=== PATIENT | female | born 1975 | race Caucasian/White ===

== ENCOUNTER 2018-08-24 10:52 | Emergency (ER) | payer BC ==
--- NOTE | 2018-08-24 11:19 | EDM.PDOC ---
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 She states that she is eyes had a heavy periods but they've never been this heavy over this long. She reports that she is wearing a super plus tampon plus an overnight pad and is soaking through these every hour. She states about 1 week ago she began having dizziness and lightheaded and feels as though she is getting anemic. She denies any chest pain, shortness of breath, abdominal pain, dysuria, hematuria. She has taken a test which he states has been negative. Denies any previous gynecological surgeries or procedures. She is otherwise healthy and denies any significant past medical history. Review of systems: As per history of present illness and below otherwise all systems reviewed and negative. Past medical history: As per history of present illness and as reviewed below otherwise noncontributory. Surgical history: As per history of present illness and as reviewed below otherwise noncontributory. Social history: No reported history of drug or alcohol abuse. Family history: As per history of present illness and as reviewed below otherwise noncontributory. Physical exam: General: Patient sitting comfortably in no acute distress and nontoxic appearing HEENT: Atraumatic, normocephalic, pupils reactive, negative for conjunctival pallor or scleral icterus, mucous membranes moist, throat clear, neck supple, nontender, trachea midline. No meningeal signs. Lungs: Clear to auscultation, breath sounds equal bilaterally, chest nontender. Heart: S1S2, regular, negative for clicks, rubs, or overt murmur. Abdomen: Soft, nondistended, nontender. Negative for masses or hepatosplenomegaly. Negative for costovertebral tenderness. Pelvis: Stable nontender. Genitourinary: Moderate amount of bleeding from the cervix Rectal: Deferred. Extremities: Atraumatic, negative for cords or calf pain. Neurovascular unremarkable. Neuro: Awake, alert, oriented. Cranial nerves II through XII unremarkable. Cerebellum unremarkable. Motor and sensory unremarkable throughout. Exam nonfocal. Notes: 1250 - Discussed with Dr. Mendes, she advised patient calls for a sooner follow up and will start her on progesterone 10mg daily x 10 days. Diagnostics: CBC, CMP, PT/INR, hCG, EKG Therapeutics: None Prescriptions: Progesterone 10mg Impression: Abnormal uterine bleeding Plan: 1. Take medication as instructed 2. 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 Return to ED as needed as discussed Definitive disposition and diagnosis as appropriate pending reevaluation and review of above. - Related Data Allergies Allergy/AdvReac Type Severity Reaction Status Date / Time No Known Allergies Allergy Verified 08/24/18 11:07 Home Meds: Home Meds Multivitamin [Multivitamins] 1 each PO DAILY 08/24/18 [History] medroxyPROGESTERone [Provera] 10 mg PO DAILY 10 Days #10 tab 08/24/18 [Rx] Past Medical History - Past Health History Medical/Surgical History: Denies Medical/Surgical History - Infectious Disease History Infectious Disease History: Reports: Chicken Pox - Past Surgical History GI Surgical History: Reports: Cholecystectomy Social & Family History - Family History Family Medical History: Noncontributory - Tobacco Use Smoking Status *Q: Current Every Day Smoker Years of Tobacco use: 2 Packs/Tins Daily: 0.1 - Recreational Drug Use Recreational Drug Use: No ED ROS GENERAL - Review of Systems Review Of Systems: ROS reveals no pertinent complaints other than HPI. ED EXAM, RENAL/ - Physical Exam Exam: See Below (See dictation) Course - Vital Signs Last Recorded V/S: Last Vital Signs Temp 98.7 F 08/24/18 11:07 Pulse 97 08/24/18 11:07 Resp 18 08/24/18 11:07 BP 135/90 08/24/18 11:07 Pulse Ox 98 08/24/18 11:07 - Orders/Labs/Meds Orders: Active Orders 24 hr Category Date Time Status EKG 12 Lead [EKG Documentation Completion] [RC] STAT Care 08/24/18 11:25 Active Orthostatic Vital Signs [RC] ASDIRECTED Care 08/24/18 11:53 Active Labs: Laboratory Tests 08/24/18 08/24/18 08/24/18 Range/Units 11:20 11:20 11:30 WBC 9.76 (4.0-11.0) K/uL RBC 3.97 L (4.30-5.90) M/uL Hgb 11.5 L (12.0-16.0) g/dL Hct 35.6 L (36.0-46.0) % MCV 89.7 (80.0-98.0) fL MCH 29.0 (27.0-32.0) pg MCHC 32.3 (31.0-37.0) g/dL RDW Std Deviation 45.2 (28.0-62.0) fl RDW Coeff of Monster 14 (11.0-15.0) % Plt Count 331 (150-400) K/uL MPV 9.60 (7.40-12.00) fL Neut % (Auto) 61.9 (48.0-80.0) % Lymph % (Auto) 28.1 (16.0-40.0) % Wirt % (Auto) 6.1 (0.0-15.0) % Eos % (Auto) 3.6 (0.0-7.0) % Baso % (Auto) 0.3 (0.0-1.5) % Neut # (Auto) 6.0 H (1.4-5.7) K/uL Lymph # (Auto) 2.7 H (0.6-2.4) K/uL Wirt # (Auto) 0.6 (0.0-0.8) K/uL Eos # (Auto) 0.4 (0.0-0.7) K/uL Baso # (Auto) 0.0 (0.0-0.1) K/uL Nucleated RBC % 0.0 /100WBC Nucleated RBCs # 0 K/uL INR 0.94 Sodium (136-145) mmol/L Potassium (3.5-5.1) mmol/L Chloride (98-107) mmol/L Carbon Dioxide (21.0-32.0) mmol/L BUN (7.0-18.0) mg/dL Creatinine (0.6-1.0) mg/dL Est Cr Clr Drug Dosing mL/min Estimated GFR (MDRD) ml/min Glucose (74-106) mg/dL Calcium (8.5-10.1) mg/dL Total Bilirubin (0.2-1.0) mg/dL AST (15-37) IU/L ALT (14-63) IU/L Alkaline Phosphatase (46-116) U/L Total Protein (6.4-8.2) g/dL Albumin (3.4-5.0) g/dL Globulin (2.6-4.0) g/dL Albumin/Globulin Ratio (0.9-1.6) Urine HCG, Qual NEGATIVE (NEGATIVE) 08/24/18 Range/Units 11:54 WBC (4.0-11.0) K/uL RBC (4.30-5.90) M/uL Hgb (12.0-16.0) g/dL Hct (36.0-46.0) % MCV (80.0-98.0) fL MCH (27.0-32.0) pg MCHC (31.0-37.0) g/dL RDW Std Deviation (28.0-62.0) fl RDW Coeff of Monster (11.0-15.0) % Plt Count (150-400) K/uL MPV (7.40-12.00) fL Neut % (Auto) (48.0-80.0) % Lymph % (Auto) (16.0-40.0) % Wirt % (Auto) (0.0-15.0) % Eos % (Auto) (0.0-7.0) % Baso % (Auto) (0.0-1.5) % Neut # (Auto) (1.4-5.7) K/uL Lymph # (Auto) (0.6-2.4) K/uL Wirt # (Auto) (0.0-0.8) K/uL Eos # (Auto) (0.0-0.7) K/uL Baso # (Auto) (0.0-0.1) K/uL Nucleated RBC % /100WBC Nucleated RBCs # K/uL INR Sodium 140 (136-145) mmol/L Potassium 4.2 (3.5-5.1) mmol/L Chloride 104 (98-107) mmol/L Carbon Dioxide 27.5 (21.0-32.0) mmol/L BUN 12 (7.0-18.0) mg/dL Creatinine 1.0 (0.6-1.0) mg/dL Est Cr Clr Drug Dosing 68.61 mL/min Estimated GFR (MDRD) > 60.0 ml/min Glucose 101 (74-106) mg/dL Calcium 9.7 (8.5-10.1) mg/dL Total Bilirubin 0.3 (0.2-1.0) mg/dL AST 32 (15-37) IU/L ALT 62 (14-63) IU/L Alkaline Phosphatase 106 (46-116) U/L Total Protein 7.7 (6.4-8.2) g/dL Albumin 3.8 (3.4-5.0) g/dL Globulin 3.9 (2.6-4.0) g/dL Albumin/Globulin Ratio 1.0 (0.9-1.6) Urine HCG, Qual (NEGATIVE) Departure - Departure Time of Disposition: 13:10 Disposition: Home, Self-Care 01 Condition: Good Clinical Impression: Abnormal uterine bleeding - Discharge Information Prescriptions: medroxyPROGESTERone [Provera] 10 mg PO DAILY 10 Days #10 tab Referrals: PCP,None [Primary Care Provider] - Forms: ED Department Discharge Additional Instructions: The following information is given to patients seen in the emergency department who are being discharged to home. This information is to outline your options for follow-up care. We provide all patients seen in our emergency department with a follow-up referral. The need for follow-up, as well as the timing and circumstances, are variable depending upon the specifics of your emergency department visit. If you don't have a primary care physician on staff, we will provide you with a referral. We always advise you to contact your personal physician following an emergency department visit to inform them of the circumstance of the visit and for follow-up with them and/or the need for any referrals to a consulting specialist. The emergency department will also refer you to a specialist when appropriate. This referral assures that you have the opportunity for follow-up care with a specialist. All of these measure are taken in an effort to provide you with optimal care, which includes your follow-up. Under all circumstances we always encourage you to contact your private physician who remains a resource for coordinating your care. When calling for follow-up care, please make the office aware that this follow-up is from your recent emergency room visit. If for any reason you are refused follow-up, please contact the [facility] Emergency Department at and asked to speak to the emergency department charge nurse. [facility] [address] [place] [id number] 1. Take medication as instructed 2. 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 Return to ED as needed as discussed - My Orders Last 24 Hours: My Active Orders 08/24/18 11:25 EKG 12 Lead [EKG Documentation Completion] [RC] STAT 08/24/18 11:53 Orthostatic Vital Signs [RC] ASDIRECTED - Assessment/Plan Last 24 Hours: My Active Orders 08/24/18 11:25 EKG 12 Lead [EKG Documentation Completion] [RC] STAT 08/24/18 11:53 Orthostatic Vital Signs [RC] ASDIRECTED
[2018-08-24 12:10] LABS: CHLORIDE,CL 104 mmol/L (98-107); SODIUM,NA 140 mmol/L (136-145)
[2018-08-24 14:16] VITALS: BP 138/71
== END 2018-08-24 13:45 | disposition home or self-care (01) ==
LOC: MW.ED 10:52
DX: N93.9 Abnormal uterine and vaginal bleeding, unspecified (principal); F17.210 Nicotine dependence, cigarettes, uncomplicated; Z90.49 Acquired absence of other specified parts of digestive tract
CPT/HCPCS: 36415; 80053; 81025; 85025; 85610; 99284-25

== ENCOUNTER 2019-09-20 20:31 | Emergency (ER) | payer BC ==
--- NOTE | 2019-09-20 21:23 | EDM.PDOC ---
ED HPI GENERAL MEDICAL PROBLEM - General Chief Complaint: Abdominal Pain Stated Complaint: LEFT LOWER Q Time Seen by Provider: 09/20/19 20:46 Source of Information: Reports: Patient History Limitations: Reports: No Limitations - History of Present Illness INITIAL COMMENTS - FREE TEXT/NARRATIVE: CC: Left lower quadrant abdominal pain HPI: This is a 44-year-old female who presents with left lower quadrant abdominal pain for 2 days. 1 week ago patient noted she had a positive test. Patient is a G5, P3. No vaginal discharge fever vomiting diarrhea or dysuria. Last menstrual period was 5 weeks ago. No current vaginal bleeding. No history of PID. PMHX/PSHX: with 1 miscarriage in the past Social History: Negative for tobacco, negative for alcohol, negative for street drugs or marijuana Family history: Hypertension ROS: see chart PE: VS afebrile vital signs stable General: No apparent distress Head: Atraumatic normocephalic no lumps bumps or bruises Eyes: EOMI PERRLA scera white, conjuntiva pink Ears: TMs intact. No hemotympanum. No signs of infection or mastoid tenderness Nose: No epistaxis. Nares patent. No septal wall hematoma Throat: No pharyngeal erythema, exudate or tonsillar enlargement Neck: Supple. No cervical lymphadenopathy Chest wall: No point tenderness Heart: Regular rate and rhythm without murmur gallop or rub Lungs: Clear to auscultation and percussion without rale, rhonchi or wheeze. Abdomen: Soft nontender nondistended without guarding rigidity or rebound. Bowel sounds present. Neck: No spinal point tenderness full range of motion in all 6 directions Back: No spinal paraspinal or CVA tenderness Extremities: Full range of motion through out. No effusions Skin: Warm, dry and intact. No rashes, erythema or warmth Neurologic: Cranial nerves II through XII intact bilaterally. No focal motor or sensory deficits noted MDM: Differential diagnosis: ovarian torsion ovarian cyst urinary tract infection miscarriage ED course: Patient denies any vaginal bleeding or PID. She is O+ therefore RhoGam is not required. Work-up is negative except for her quantitative hCG of approximately 30,000. Ultrasound shows a uterine fibroid next to the left ovary it also shows a single live intrauterine at 6 weeks. Therefore no signs of an ectopic . Patient's case discussed with the OB on-call who will follow the patient closely. Patient advised to take Tylenol. Stable for discharge Final Diagnosis: Uterine fibroid, first trimester Disposition: Home llq Pain Score (Numeric/FACES): 4 - Related Data Allergies Allergy/AdvReac Type Severity Reaction Status Date / Time No Known Allergies Allergy Verified 08/24/18 11:07 Home Meds: Home Meds Multivitamin [Multivitamins] 1 each PO DAILY 08/24/18 [History] medroxyPROGESTERone [Provera] 10 mg PO DAILY 10 Days #10 tab 08/24/18 [Rx] Past Medical History - Past Health History Medical/Surgical History: Denies Medical/Surgical History - Infectious Disease History Infectious Disease History: Reports: Chicken Pox - Past Surgical History GI Surgical History: Reports: Cholecystectomy Social & Family History - Family History Family Medical History: Noncontributory ED ROS GENERAL - Review of Systems Review Of Systems: Comprehensive ROS is negative, except as noted in HPI. ED EXAM, GI/ABD - Physical Exam Exam: See Below Text/Narrative:: See my H&P Course - Vital Signs Last Recorded V/S: Last Vital Signs Temp 36.2 C 09/20/19 22:40 Pulse 79 09/20/19 22:40 Resp 14 09/20/19 22:40 BP 114/75 09/20/19 22:40 Pulse Ox 99 09/20/19 22:40 - Orders/Labs/Meds Labs: Laboratory Tests 09/20/19 09/20/19 09/20/19 Range/Units 20:45 21:08 21:08 WBC 10.27 (4.0-11.0) K/uL RBC 4.88 (4.30-5.90) M/uL Hgb 13.5 (12.0-16.0) g/dL Hct 41.2 (36.0-46.0) % MCV 84.4 (80.0-98.0) fL MCH 27.7 (27.0-32.0) pg MCHC 32.8 (31.0-37.0) g/dL RDW Std Deviation 46.3 (28.0-62.0) fl RDW Coeff of Monster 15 (11.0-15.0) % Plt Count 284 (150-400) K/uL MPV 9.90 (7.40-12.00) fL Neut % (Auto) 62.4 (48.0-80.0) % Lymph % (Auto) 28.5 (16.0-40.0) % Fountain % (Auto) 5.9 (0.0-15.0) % Eos % (Auto) 2.7 (0.0-7.0) % Baso % (Auto) 0.5 (0.0-1.5) % Neut # (Auto) 6.4 H (1.4-5.7) K/uL Lymph # (Auto) 2.9 H (0.6-2.4) K/uL Fountain # (Auto) 0.6 (0.0-0.8) K/uL Eos # (Auto) 0.3 (0.0-0.7) K/uL Baso # (Auto) 0.1 (0.0-0.1) K/uL Nucleated RBC % 0.0 /100WBC Nucleated RBCs # 0 K/uL Sodium 141 (136-145) mmol/L Potassium 3.3 L (3.5-5.1) mmol/L Chloride 105 (98-107) mmol/L Carbon Dioxide 26.6 (21.0-32.0) mmol/L BUN 7 (7.0-18.0) mg/dL Creatinine 0.8 (0.6-1.0) mg/dL Est Cr Clr Drug Dosing 84.88 mL/min Estimated GFR (MDRD) > 60.0 ml/min Glucose 86 (74-106) mg/dL Calcium 8.9 (8.5-10.1) mg/dL HCG, Quant mIU/mL Urine Color YELLOW Urine Appearance SLT CLOUDY Urine pH 6.0 (5.0-8.0) Ur Specific Santa >= 1.030 (1.001-1.035) Urine Protein NEGATIVE (NEGATIVE) mg/dL Urine Glucose (UA) NEGATIVE (NEGATIVE) mg/dL Urine Ketones NEGATIVE (NEGATIVE) mg/dL Urine Occult Blood NEGATIVE (NEGATIVE) Urine Nitrite POSITIVE H (NEGATIVE) Urine Bilirubin NEGATIVE (NEGATIVE) Urine Urobilinogen 0.2 (<2.0) EU/dL Ur Leukocyte Esterase NEGATIVE (NEGATIVE) Urine RBC NONE SEEN (0-2/HPF) Urine WBC 0-2 (0-5/HPF) Ur Epithelial Cells FEW (NONE-FEW) Urine Bacteria 3+ H (NEGATIVE) Urine Mucus LIGHT (NONE-MOD) Blood Type 09/20/19 09/20/19 Range/Units 21:08 21:08 WBC (4.0-11.0) K/uL RBC (4.30-5.90) M/uL Hgb (12.0-16.0) g/dL Hct (36.0-46.0) % MCV (80.0-98.0) fL MCH (27.0-32.0) pg MCHC (31.0-37.0) g/dL RDW Std Deviation (28.0-62.0) fl RDW Coeff of Monster (11.0-15.0) % Plt Count (150-400) K/uL MPV (7.40-12.00) fL Neut % (Auto) (48.0-80.0) % Lymph % (Auto) (16.0-40.0) % Fountain % (Auto) (0.0-15.0) % Eos % (Auto) (0.0-7.0) % Baso % (Auto) (0.0-1.5) % Neut # (Auto) (1.4-5.7) K/uL Lymph # (Auto) (0.6-2.4) K/uL Fountain # (Auto) (0.0-0.8) K/uL Eos # (Auto) (0.0-0.7) K/uL Baso # (Auto) (0.0-0.1) K/uL Nucleated RBC % /100WBC Nucleated RBCs # K/uL Sodium (136-145) mmol/L Potassium (3.5-5.1) mmol/L Chloride (98-107) mmol/L Carbon Dioxide (21.0-32.0) mmol/L BUN (7.0-18.0) mg/dL Creatinine (0.6-1.0) mg/dL Est Cr Clr Drug Dosing mL/min Estimated GFR (MDRD) ml/min Glucose (74-106) mg/dL Calcium (8.5-10.1) mg/dL HCG, Quant 57125.0 mIU/mL Urine Color Urine Appearance Urine pH (5.0-8.0) Ur Specific Santa (1.001-1.035) Urine Protein (NEGATIVE) mg/dL Urine Glucose (UA) (NEGATIVE) mg/dL Urine Ketones (NEGATIVE) mg/dL Urine Occult Blood (NEGATIVE) Urine Nitrite (NEGATIVE) Urine Bilirubin (NEGATIVE) Urine Urobilinogen (<2.0) EU/dL Ur Leukocyte Esterase (NEGATIVE) Urine RBC (0-2/HPF) Urine WBC (0-5/HPF) Ur Epithelial Cells (NONE-FEW) Urine Bacteria (NEGATIVE) Urine Mucus (NONE-MOD) Blood Type O POSITIVE Departure - Departure Time of Disposition: 22:59 Disposition: Home, Self-Care 01 Clinical Impression: Uterine fibroid complicating care, baby not yet delivered - Discharge Information Referrals: Joe Bowman MD [Primary Care Provider] - Forms: ED Department Discharge Additional Instructions: The following information is given to patients seen in the emergency department who are being discharged to home. This information is to outline your options for follow-up care. We provide all patients seen in our emergency department with a follow-up referral. The need for follow-up, as well as the timing and circumstances, are variable depending upon the specifics of your emergency department visit. If you don't have a primary care physician on staff, we will provide you with a referral. We always advise you to contact your personal physician following an emergency department visit to inform them of the circumstance of the visit and for follow-up with them and/or the need for any referrals to a consulting specialist. The emergency department will also refer you to a specialist when appropriate. This referral assures that you have the opportunity for follow-up care with a specialist. All of these measure are taken in an effort to provide you with optimal care, which includes your follow-up. Under all circumstances we always encourage you to contact your private physician who remains a resource for coordinating your care. When calling for follow-up care, please make the office aware that this follow-up is from your recent emergency room visit. If for any reason you are refused follow-up, please contact the [facility] Emergency Department at and asked to speak to the emergency department charge nurse. Call tomorrow to arrange a appointment with your [employer]. Feel free to take Tylenol for any discomfort Sepsis Event Note - Evaluation Sepsis Screening Result: No Definite Risk - Focused Exam Vital Signs: Vital Signs Temp Pulse Resp BP Pulse Ox 09/20/19 22:40 36.2 C 79 14 114/75 99 09/20/19 20:49 36.3 C 96 16 136/79 98 Date Exam was Performed: 09/20/19 Time Exam was Performed: 22:58
[2019-09-20 21:48] LABS: BLOOD UREA NITROGEN,BUN 7 mg/dL (7.0-18.0); CARBON DIOXIDE,CO2 26.6 mmol/L (21.0-32.0); CHLORIDE,CL 105 mmol/L (98-107); GLUCOSE RANDOM 86 mg/dL (74-106); POTASSIUM,K 3.3 mmol/L (3.5-5.1); SODIUM,NA 141 mmol/L (136-145)
--- NOTE | 2019-09-20 22:13 | US ---
Indication: Left lower quadrant pain, positive test Technique: Multiple grayscale and Doppler sonographic images of the pelvis. Scanning was performed transabdominally and transvaginally. Comparison: None Findings: There is a single live intrauterine gestation with crown-rump length of 4.8 mm, corresponding to approximate gestational age of 6 weeks, 2 days. tones are detected with rate of 122 beats per minute. There is an oval structure measuring 3.0 x 1.9 cm adjacent to left uterine fundus with similar echogenicity to the myometrium, most likely presenting an exophytic subserosal fibroid. The right ovary measures 2.5 x 2.0 x 1.6 cm and contains a 1.5 cm thick-walled cystic structure compatible with a corpus luteum.. Vascular flow is demonstrated to the right ovary. The left ovary measures 1.8 x 1.8 x 1.4 cm and demonstrates normal echotexture. Vascular flow is demonstrated to the left ovary. No adnexal mass is demonstrated. Trace free fluid is noted in the pelvic cul-de-sac. Impression: 1. Single live intrauterine gestation with approximate age of 6 weeks, 2 days and heart rate of 122 bpm. 2. Likely 3 cm left fundal uterine fibroid. 3. Unremarkable ovaries. Dictated by Mena Eli MD @ Sep 20 2019 10:00PM Signed by Dr. Mena Eli @ Sep 20 2019 10:13PM
[2019-09-20 23:55] VITALS: BP 119/74; PULSE 74
== END 2019-09-20 23:53 | disposition home or self-care (01) ==
LOC: MW.ED 20:31
DX: O34.11 Maternal care for benign tumor of corpus uteri, first trimester (principal); O09.521 Supervision of elderly multigravida, first trimester; Z3A.01 Less than 8 weeks gestation of pregnancy
CPT/HCPCS: 36415; 76817; 76817-26; 80048; 81001; 84702; 85025; 86900; 86901; 99284-25

== ENCOUNTER 2020-04-13 | Inpatient (IN) | payer OTHER ==
[2020-04-13 01:22] LABS: BLOOD UREA NITROGEN,BUN 9 mg/dL (7.0-18.0); CARBON DIOXIDE,CO2 24.6 mmol/L (21.0-32.0); CHLORIDE,CL 103 mmol/L (98-107); GLUCOSE RANDOM 147 mg/dL (74-106); POTASSIUM,K 3.4 mmol/L (3.5-5.1); SODIUM,NA 138 mmol/L (136-145)
[2020-04-13] MEDS ORDERED: Acetaminophen 500 MG Tab PO PRN (02:23)
[2020-04-13] MEDS ORDERED: Acetaminophen/oxyCODONE 325-5 MG Tab PO ONE (05:02)
[2020-04-13] MEDS ORDERED: Methylergonovine 0.2 MG/1 ML Amp IM PRN (05:03)
[2020-04-13] MEDS ORDERED: Water For Irrigation,Sterile 1,000 ML Container IRR PRN (05:03)
[2020-04-13] MEDS ORDERED: Nalbuphine 10 MG/1 ML Vial IVPUSH PRN (05:03)
[2020-04-13] MEDS ORDERED: Sodium Chloride 0.9% 10 ML SDV IV PRN (05:03)
[2020-04-13] MEDS ORDERED: Misoprostol 200 MCG Tab PO PRN (05:03)
[2020-04-13] MEDS ORDERED: Carboprost Tromethamine 250 MCG/1 ML Amp IM PRN (05:03)
[2020-04-13] MEDS ORDERED: Butorphanol 1 MG/ML SDV IVPUSH PRN (05:03)
[2020-04-13] MEDS ORDERED: Lidocaine 1% 50 ML MDV INJECT PRN (05:03)
[2020-04-13] MEDS ORDERED: Sodium Chloride 0.9% 10 ML Syringe FLUSH PRN (05:03)
[2020-04-13] MEDS ORDERED: Tranexamic Acid 1,000 MG in Sodium Chloride 0.9% 100 ML IV PRN (05:03)
[2020-04-13] MEDS ORDERED: Sodium Chloride 0.9% 2.5 ML Syringe FLUSH PRN (05:03)
[2020-04-13] MEDS ORDERED: Oxytocin/0.9 % Sodium Chloride 30 UNIT/500 ML BAG IV SCH ×2 (05:15→09:00)
[2020-04-13] MEDS ORDERED: Acetaminophen/Butalbital/Caffeine 325-50-40 MG Tab ONE (08:57)
[2020-04-13] MEDS ORDERED: Terbutaline 1 MG/ML SDV SUBCUT PRN (08:59)
[2020-04-13] MEDS ORDERED: Acetaminophen/Butalbital/Caffeine 325-50-40 MG Tab PO PRN (09:02)
--- NOTE | 2020-04-13 09:28 | PCM.LDHP ---
L&D History of Present Illness - General Date of Service: 04/13/20 Admit Problem/Dx: Patient Status Order with Admit Dx/Problem 04/13/20 00:00 Patient Status [ADT] Routine 04/13/20 05:04 Patient Status [ADT] Routine Admission Diagnosis/Problem Admission Diagnosis/Problem 04/13/20 09:24 presenting at 36 2/7 weeks (KALI: 05/09/20) with increasing BPs; monitored overnight last night. Dr. Bowman advised induction of labor this AM. O+, rubella immune, GBS pending. Source of Information: Patient History Limitations: Reports: No Limitations - History of Present Illness Pain Score: 7 - Related Data Allergies/Adverse Reactions: Allergies Allergy/AdvReac Type Severity Reaction Status Date / Time No Known Allergies Allergy Verified 04/12/20 12:20 Home Medications: Home Meds Multivitamin [Multivitamins] 1 each PO DAILY 08/24/18 [History] Past Medical History - Past Health History Medical/Surgical History: Denies Medical/Surgical History - Infectious Disease History Infectious Disease History: Reports: Chicken Pox - Past Surgical History GI Surgical History: Reports: Cholecystectomy Social & Family History - Family History Family Medical History: Noncontributory - Tobacco Use Smoking Status *Q: Never Smoker Second Hand Smoke Exposure: Yes - Caffeine Use Caffeine Use: Reports: Soda - Recreational Drug Use Recreational Drug Use: No H&P Review of Systems - Review of Systems: Review Of Systems: See Below General: Reports: No Symptoms HEENT: Reports: No Symptoms Pulmonary: Reports: No Symptoms Cardiovascular: Reports: No Symptoms Gastrointestinal: Reports: No Symptoms Genitourinary: Reports: No Symptoms Musculoskeletal: Reports: No Symptoms Skin: Reports: No Symptoms Psychiatric: Reports: No Symptoms Neurological: Reports: No Symptoms Hematologic/Lymphatic: Reports: No Symptoms Immunologic: Reports: No Symptoms L&D Exam - Exam Exam: See Below - Vital Signs Vital Signs: Last Vital Signs Temp 97.9 F 04/13/20 04:01 Pulse Resp BP Pulse Ox Weight: 236 lb - OB Specific Fundal Height In cm: 36 Movement: Active Heart Tones: Present Heart Rate (FHR) Variability: Moderate (6-25 bmp) Presentation: Vertex - Marks Score Marks Score Cervix Position: Midposition Marks Score Consistency: Medium Marks Score Effacement: 0-30% Marks Score Dilation: 1-2 cm Marks Score 's Station: -3 Marks Score Total: 3 - Exam General: Alert, Oriented, Cooperative Lungs: Normal Respiratory Effort Cardiovascular: Regular Rate, Regular Rhythm GI/Abdominal Exam: Soft, Non-Tender Rectal Exam: Deferred Genitourinary: Normal external exam Back Exam: Normal Inspection, Full Range of Motion Extremities: Normal Inspection, Normal Range of Motion, Non-Tender, Normal Capillary Refill Skin: Warm, Dry, Intact Neurological: Strength Equal Bilateral, Normal Speech, Normal Tone, Sensation Intact Psychiatric: Alert, Normal Affect, Normal Mood - Patient Data Lab Results Last 24 hrs: Laboratory Results - last 24 hr 04/13/20 04/13/20 04/13/20 Range/Units 00:50 00:50 05:42 WBC 10.90 (4.0-11.0) K/uL RBC 4.34 (4.30-5.90) M/uL Hgb 13.3 (12.0-16.0) g/dL Hct 38.9 (36.0-46.0) % MCV 89.6 (80.0-98.0) fL MCH 30.6 (27.0-32.0) pg MCHC 34.2 (31.0-37.0) g/dL RDW Std Deviation 45.9 (28.0-62.0) fl RDW Coeff of Monster 15 (11.0-15.0) % Plt Count 210 (150-400) K/uL MPV 10.40 (7.40-12.00) fL Sodium 138 (136-145) mmol/L Potassium 3.4 L (3.5-5.1) mmol/L Chloride 103 (98-107) mmol/L Carbon Dioxide 24.6 (21.0-32.0) mmol/L BUN 9 (7.0-18.0) mg/dL Creatinine 0.8 (0.6-1.0) mg/dL Est Cr Clr Drug Dosing TNP Estimated GFR (MDRD) > 60.0 ml/min Glucose 147 H (74-106) mg/dL Uric Acid 4.2 (2.6-7.2) mg/dL Calcium 8.7 (8.5-10.1) mg/dL Total Bilirubin 0.2 (0.2-1.0) mg/dL AST 20 (15-37) IU/L ALT 26 (14-63) IU/L Alkaline Phosphatase 177 H (46-116) U/L Total Protein 6.6 (6.4-8.2) g/dL Albumin 2.4 L (3.4-5.0) g/dL Globulin 4.2 H (2.6-4.0) g/dL Albumin/Globulin Ratio 0.6 L (0.9-1.6) SARS-CoV-2 RNA (BHAVNA) NEGATIVE (NEGATIVE) Blood Type Antibody Screen 04/13/20 Range/Units 06:00 WBC (4.0-11.0) K/uL RBC (4.30-5.90) M/uL Hgb (12.0-16.0) g/dL Hct (36.0-46.0) % MCV (80.0-98.0) fL MCH (27.0-32.0) pg MCHC (31.0-37.0) g/dL RDW Std Deviation (28.0-62.0) fl RDW Coeff of Monster (11.0-15.0) % Plt Count (150-400) K/uL MPV (7.40-12.00) fL Sodium (136-145) mmol/L Potassium (3.5-5.1) mmol/L Chloride (98-107) mmol/L Carbon Dioxide (21.0-32.0) mmol/L BUN (7.0-18.0) mg/dL Creatinine (0.6-1.0) mg/dL Est Cr Clr Drug Dosing Estimated GFR (MDRD) ml/min Glucose (74-106) mg/dL Uric Acid (2.6-7.2) mg/dL Calcium (8.5-10.1) mg/dL Total Bilirubin (0.2-1.0) mg/dL AST (15-37) IU/L ALT (14-63) IU/L Alkaline Phosphatase (46-116) U/L Total Protein (6.4-8.2) g/dL Albumin (3.4-5.0) g/dL Globulin (2.6-4.0) g/dL Albumin/Globulin Ratio (0.9-1.6) SARS-CoV-2 RNA (BHAVNA) (NEGATIVE) Blood Type O POSITIVE Antibody Screen NEGATIVE Result Diagrams: 04/13/20 00:50 04/13/20 00:50 - Problem List (1) Supervision of normal IUP (intrauterine ) in multigravida SNOMED Code(s): 501122916, 293488671, 881509439 ICD Code: Z34.80 - ENCOUNTER FOR SUPRVSN OF NORMAL , UNSP TRIMESTER Status: Acute Priority: High Current Visit: Yes Qualifiers: Trimester: third trimester Qualified Code(s): Z34.83 - Encounter for supervision of other normal , third trimester (2) PIH ( induced hypertension) SNOMED Code(s): 00248821 ICD Code: O13.9 - GESTATIONAL HTN W/O SIGNIFICANT PROTEINURIA, UNSP TRIMESTER Status: Acute Priority: High Current Visit: Yes Qualifiers: Trimester: third trimester Qualified Code(s): O13.3 - Gestational [-induced] hypertension without significant proteinuria, third trimester Problem List Initiated/Reviewed/Updated: Yes Orders Last 24hrs: Active Orders 24 hr Category Date Time Status Patient Status [ADT] Routine ADT 04/13/20 05:04 Active Bedrest Bathroom Privileges [RC] ASDIRECTED Care 04/13/20 08:59 Active Communication Order [RC] ASDIRECTED Care 04/13/20 08:59 Active Communication Order [RC] ASDIRECTED Care 04/13/20 08:59 Active Heart Tones [RC] CONTINUOUS Care 04/13/20 05:04 Active Non Stress Test [RC] PER UNIT ROUTINE Care 04/13/20 02:26 Active Non Stress Test [RC] PER UNIT ROUTINE Care 04/13/20 05:04 Active May Shower [RC] ASDIRECTED Care 04/13/20 05:04 Active Notify Provider [RC] PRN Care 04/13/20 05:04 Active Notify Provider [RC] PRN Care 04/13/20 08:59 Active Oxygen Therapy [RC] ASDIRECTED Care 04/13/20 08:59 Active Up ad Sugey [RC] ASDIRECTED Care 04/13/20 02:26 Active Up ad Sugey [RC] ASDIRECTED Care 04/13/20 05:04 Active Vaginal Exam [RC] Click to Edit Care 04/13/20 02:26 Active Vaginal Exam [RC] PRN Care 04/13/20 05:04 Active Vaginal Exam [RC] PRN Care 04/13/20 08:59 Active Vital Signs [RC] PER UNIT ROUTINE Care 04/13/20 02:26 Active Vital Signs [RC] PER UNIT ROUTINE Care 04/13/20 05:04 Active Vital Signs [RC] PER UNIT ROUTINE Care 04/13/20 08:59 Active Regular Diet [DIET] Diet 04/13/20 Breakfast Active RPR (SYPHILIS SERO) W/ RFLX [REF] Routine Lab 04/13/20 06:00 Received Acetaminophen [Tylenol Extra Strength] Med 04/13/20 02:23 Active 1,000 mg PO Q4H PRN Acetaminophen/Butalbital/Caff [Fioricet 325-50-40 MG] Med 04/13/20 08:52 Active 1 tab PO Q4H PRN Acetaminophen/Butalbital/Caff [Fioricet 325-50-40 MG] Med 04/13/20 09:02 Active 2 tab PO Q4H PRN Butorphanol [Stadol] Med 04/13/20 05:03 Active 1 mg IVPUSH Q1H PRN Carboprost Tromethamine [Hemabate DS] Med 04/13/20 05:03 Active 250 mcg IM ASDIRECTED PRN Lactated Ringers [Ringers, Lactated] 1,000 ml Med 04/13/20 05:15 Active IV ASDIRECTED Lidocaine 1% [Xylocaine 1%] Med 04/13/20 05:03 Active 50 ml INJECT ONETIME PRN Methylergonovine [Methergine] Med 04/13/20 05:03 Active 0.2 mg IM ASDIRECTED PRN NIFEdipine [Procardia XL] Med 04/13/20 14:00 Active 60 mg PO DAILY Nalbuphine [Nubain] Med 04/13/20 05:03 Active 10 mg IVPUSH Q1H PRN Oxytocin/0.9 % Sodium Chloride [Oxytocin 30 Unit/500 ML Med 04/13/20 05:15 Active -NS] 30 unit in 500 ml IV TITRATE Oxytocin/0.9 % Sodium Chloride [Oxytocin 30 Unit/500 ML Med 04/13/20 09:00 Active -NS] 30 unit in 500 ml IV TITRATE Sodium Chloride 0.9% [Normal Saline] Med 04/13/20 05:03 Active 10 ml IV ASDIRECTED PRN Sodium Chloride 0.9% [Saline Flush] Med 04/13/20 05:03 Active 10 ml FLUSH ASDIRECTED PRN Sodium Chloride 0.9% [Saline Flush] Med 04/13/20 05:03 Active 2.5 ml FLUSH ASDIRECTED PRN Terbutaline [Brethine] Med 04/13/20 08:59 Active 0.25 mg SUBCUT ASDIRECTED PRN Tranexamic Acid [Cyklokapron] 1,000 mg Med 04/13/20 05:03 Active Sodium Chloride 0.9% [Normal Saline] 100 ml IV ONETIME Water For Irrigation,Sterile [Sterile Water for Med 04/13/20 05:03 Active Irrigation] 1,000 ml IRR ASDIRECTED PRN miSOPROStoL [Cytotec] Med 04/13/20 05:03 Active 200 mcg PO ONETIME PRN miSOPROStoL [Cytotec] Med 04/13/20 08:59 Active 25 mcg PO Q4H PRN miSOPROStoL [Cytotec] Med 04/13/20 08:59 Active 25 mcg VAG Q4H PRN Scalp Electrode [WOMSER] Per Unit Routine Oth 04/13/20 05:04 Ordered Medication Administration Instruction [OM.PC] Q3H Oth 04/13/20 09:00 Ordered Peripheral IV Insertion Adult [OM.PC] Routine Oth 04/13/20 05:04 Ordered Resuscitation Status Routine Resus Stat 04/13/20 02:26 Ordered Medication Orders Acetaminophen (Tylenol Extra Strength) 1,000 mg PO Q4H PRN PRN Reason: Headache/Pain Last Admin: 04/13/20 04:01 Dose: 1,000 mg Documented by: DILLAN Acetaminophen/Butalbital/Caffeine (Fioricet 325-50-40 Mg) 1 tab PO Q4H PRN PRN Reason: Pain (moderate 4-6) Acetaminophen/Butalbital/Caffeine (Fioricet 325-50-40 Mg) 2 tab PO Q4H PRN PRN Reason: Pain (moderate 4-6) Butorphanol Tartrate (Stadol) 1 mg IVPUSH Q1H PRN PRN Reason: Pain Carboprost Tromethamine (Hemabate Ds) 250 mcg IM ASDIRECTED PRN PRN Reason: Post Hemorrhage Lactated Ringer's (Ringers, Lactated) 1,000 mls @ 150 mls/hr IV ASDIRECTED SHILOH Oxytocin/Sodium Chloride (Oxytocin 30 Unit/500 Ml-Ns) 30 unit in 500 mls @ 500 mls/hr IV TITRATE SHILOH Tranexamic Acid 1,000 mg/ (Sodium Chloride) 110 mls @ 660 mls/hr IV ONETIME PRN PRN Reason: Bleeding Oxytocin/Sodium Chloride (Oxytocin 30 Unit/500 Ml-Ns) 30 unit in 500 mls @ 2 mls/hr IV TITRATE SHILOH; Protocol Lidocaine HCl (Xylocaine 1%) 50 ml INJECT ONETIME PRN PRN Reason: Laceration repair Methylergonovine Maleate (Methergine) 0.2 mg IM ASDIRECTED PRN PRN Reason: Post Hemorrhage Misoprostol (Cytotec) 200 mcg PO ONETIME PRN PRN Reason: Post Hemorrhage Misoprostol (Cytotec) 25 mcg PO Q4H PRN PRN Reason: Cervical Ripening Misoprostol (Cytotec) 25 mcg VAG Q4H PRN PRN Reason: Cervical Ripening Nalbuphine HCl (Nubain) 10 mg IVPUSH Q1H PRN PRN Reason: Pain (severe 7-10) Nifedipine (Procardia Xl) 60 mg PO DAILY SHILOH Sodium Chloride (Saline Flush) 10 ml FLUSH ASDIRECTED PRN PRN Reason: Keep Vein Open Sodium Chloride (Saline Flush) 2.5 ml FLUSH ASDIRECTED PRN PRN Reason: Keep Vein Open Sodium Chloride (Normal Saline) 10 ml IV ASDIRECTED PRN PRN Reason: IV Use Sterile Water (Sterile Water For Irrigation) 1,000 ml IRR ASDIRECTED PRN PRN Reason: delivery Terbutaline Sulfate (Brethine) 0.25 mg SUBCUT ASDIRECTED PRN PRN Reason: Tacysystole Assessment/Plan Comment:: Admit A: presenting at 36 2/7 weeks (KALI: 05/09/20) with increasing BPs; monitored overnight last night. Dr. Bowman advised induction of labor this AM. O+, rubella immune, GBS pending. P: Induction of labor; cytotec to pitocin; epidural PRN; anticipate ; Dr. Bowman updated.
[2020-04-13] MEDS: Misoprostol 25 MCG (1/4 of 100 MCG) Tab PO PRN ×4 (09:50→22:10)
[2020-04-13] MEDS: Misoprostol 25 MCG (1/4 of 100 MCG) Tab VAG PRN ×4 (09:53→22:11)
[2020-04-13] MEDS ORDERED: Ampicillin 2 GM in Sodium Chloride 0.9% 100 ML IV ONE (10:02)
[2020-04-13] MEDS: Lactated Ringers 1,000 ML IV SCH ×2 (10:30→18:01)
[2020-04-13] MEDS: NIFEdipine 30 MG Tab.ER PO SCH (14:30)
[2020-04-13] MEDS: Ampicillin 1 GM in Sodium Chloride 0.9% 50 ML IV SCH ×3 (14:32→21:58)
[2020-04-13] MEDS ORDERED: hydrALAZINE 20 MG/ML SDV IVPUSH ONE (16:58)
[2020-04-13] MEDS ORDERED: Bupivicaine/fentaNYL/NS 250 ML ONE (19:48)
--- NOTE | 2020-04-13 20:28 | PCM.PREANE ---
Preanesthetic Assessment - Anesthesia/Transfusion/Family Hx Anesthesia History: Prior Anesthesia Without Reaction Family History of Anesthesia Reaction: No Transfusion History: No Prior Transfusion(s) - Review of Systems General: No Symptoms Pulmonary: No Symptoms Cardiovascular: Edema Neurological: Headache, Other (vision changes) - Physical Assessment NPO Status Date: 04/13/20 NPO Status Time: 19:30 Vital Signs: Last Vital Signs Temp 36.6 C 04/13/20 04:01 Pulse Resp BP 153/109 H 04/13/20 14:30 Pulse Ox Height: 5 ft 6 in Weight: 107.048 kg ASA Class: 3 Mental Status: Alert & Oriented x3 Airway Class: Mallampati = 2 Dentition: Reports: Normal Dentition Thyro-Mental Finger Breadths: 3 ROM/Head Extension: Full Lungs: Clear to Auscultation, Normal Respiratory Effort Cardiovascular: Regular Rate, Regular Rhythm - Lab Values: Laboratory Last Values WBC 10.90 K/uL (4.0-11.0) 04/13/20 00:50 RBC 4.34 M/uL (4.30-5.90) 04/13/20 00:50 Hgb 13.3 g/dL (12.0-16.0) 04/13/20 00:50 Hct 38.9 % (36.0-46.0) 04/13/20 00:50 MCV 89.6 fL (80.0-98.0) 04/13/20 00:50 MCH 30.6 pg (27.0-32.0) 04/13/20 00:50 MCHC 34.2 g/dL (31.0-37.0) 04/13/20 00:50 RDW Std Deviation 45.9 fl (28.0-62.0) 04/13/20 00:50 RDW Coeff of Monster 15 % (11.0-15.0) 04/13/20 00:50 Plt Count 210 K/uL (150-400) 04/13/20 00:50 MPV 10.40 fL (7.40-12.00) 04/13/20 00:50 Sodium 138 mmol/L (136-145) 04/13/20 00:50 Potassium 3.4 mmol/L (3.5-5.1) L 04/13/20 00:50 Chloride 103 mmol/L (98-107) 04/13/20 00:50 Carbon Dioxide 24.6 mmol/L (21.0-32.0) 04/13/20 00:50 BUN 9 mg/dL (7.0-18.0) 04/13/20 00:50 Creatinine 0.8 mg/dL (0.6-1.0) 04/13/20 00:50 Est Cr Clr Drug Dosing TNP 04/13/20 00:50 Estimated GFR (MDRD) > 60.0 ml/min 04/13/20 00:50 Glucose 147 mg/dL (74-106) H 04/13/20 00:50 Uric Acid 4.2 mg/dL (2.6-7.2) 04/13/20 00:50 Calcium 8.7 mg/dL (8.5-10.1) 04/13/20 00:50 Total Bilirubin 0.2 mg/dL (0.2-1.0) 04/13/20 00:50 AST 20 IU/L (15-37) 04/13/20 00:50 ALT 26 IU/L (14-63) 04/13/20 00:50 Alkaline Phosphatase 177 U/L (46-116) H 04/13/20 00:50 Total Protein 6.6 g/dL (6.4-8.2) 04/13/20 00:50 Albumin 2.4 g/dL (3.4-5.0) L 04/13/20 00:50 Globulin 4.2 g/dL (2.6-4.0) H 04/13/20 00:50 Albumin/Globulin Ratio 0.6 (0.9-1.6) L 04/13/20 00:50 Ur Collection Duration 24 04/13/20 14:30 Urine Total Volume 2725 (800-1800) H 04/13/20 14:30 Ur Total Protein Conc 35.0 mg/dL (0-14) H 04/13/20 14:30 Ur Total Protein 24 Hr 953.7 mg/24HRS 04/13/20 14:30 SARS-CoV-2 RNA (BHAVNA) NEGATIVE (NEGATIVE) 04/13/20 05:42 Blood Type O POSITIVE 04/13/20 06:00 Antibody Screen NEGATIVE 04/13/20 06:00 - Allergies Allergies/Adverse Reactions: Allergies Allergy/AdvReac Type Severity Reaction Status Date / Time No Known Allergies Allergy Verified 04/12/20 12:20 - Acknowledgements Anesthesia Type Planned: Epidural Pt an Appropriate Candidate for the Planned Anesthesia: Yes Alternatives and Risks of Anesthesia Discussed w Pt/Guardian: Yes Pt/Guardian Understands and Agrees with Anesthesia Plan: Yes PreAnesthesia Questionnaire - Past Health History Medical/Surgical History: Denies Medical/Surgical History - Infectious Disease History Infectious Disease History: Reports: Chicken Pox - Past Surgical History GI Surgical History: Reports: Cholecystectomy - SUBSTANCE USE Smoking Status *Q: Never Smoker Second Hand Smoke Exposure: Yes Recreational Drug Use History: No - HOME MEDS Home Medications: Home Meds Multivitamin [Multivitamins] 1 each PO DAILY 08/24/18 [History] - CURRENT (IN HOUSE) MEDS Current Meds: Current Medications Acetaminophen (Tylenol Extra Strength) 1,000 mg PO Q4H PRN PRN Reason: Headache/Pain Last Admin: 04/13/20 04:01 Dose: 1,000 mg Documented by: Acetaminophen/Butalbital/Caffeine (Fioricet 325-50-40 Mg) 1 tab PO Q4H PRN PRN Reason: Pain (moderate 4-6) Acetaminophen/Butalbital/Caffeine (Fioricet 325-50-40 Mg) 2 tab PO Q4H PRN PRN Reason: Pain (moderate 4-6) Butorphanol Tartrate (Stadol) 1 mg IVPUSH Q1H PRN PRN Reason: Pain Carboprost Tromethamine (Hemabate Ds) 250 mcg IM ASDIRECTED PRN PRN Reason: Post Hemorrhage Lactated Ringer's (Ringers, Lactated) 1,000 mls @ 150 mls/hr IV ASDIRECTED SHILOH Last Admin: 04/13/20 18:01 Dose: 150 mls/hr Documented by: Oxytocin/Sodium Chloride (Oxytocin 30 Unit/500 Ml-Ns) 30 unit in 500 mls @ 500 mls/hr IV TITRATE SHILOH Tranexamic Acid 1,000 mg/ (Sodium Chloride) 110 mls @ 660 mls/hr IV ONETIME PRN PRN Reason: Bleeding Oxytocin/Sodium Chloride (Oxytocin 30 Unit/500 Ml-Ns) 30 unit in 500 mls @ 2 mls/hr IV TITRATE SHILOH; Protocol Ampicillin Sodium 1 gm/ Sodium (Chloride) 50 mls @ 100 mls/hr IV Q4H [facility] Last Admin: 04/13/20 17:55 Dose: 100 mls/hr Documented by: Lidocaine HCl (Xylocaine 1%) 50 ml INJECT ONETIME PRN PRN Reason: Laceration repair Methylergonovine Maleate (Methergine) 0.2 mg IM ASDIRECTED PRN PRN Reason: Post Hemorrhage Misoprostol (Cytotec) 200 mcg PO ONETIME PRN PRN Reason: Post Hemorrhage Misoprostol (Cytotec) 25 mcg PO Q4H PRN PRN Reason: Cervical Ripening Last Admin: 04/13/20 18:03 Dose: 25 mcg Documented by: Misoprostol (Cytotec) 25 mcg VAG Q4H PRN PRN Reason: Cervical Ripening Last Admin: 04/13/20 18:05 Dose: 25 mcg Documented by: Nalbuphine HCl (Nubain) 10 mg IVPUSH Q1H PRN PRN Reason: Pain (severe 7-10) Nifedipine (Procardia Xl) 60 mg PO DAILY [facility] Last Admin: 04/13/20 14:30 Dose: 60 mg Documented by: Sodium Chloride (Saline Flush) 10 ml FLUSH ASDIRECTED PRN PRN Reason: Keep Vein Open Sodium Chloride (Saline Flush) 2.5 ml FLUSH ASDIRECTED PRN PRN Reason: Keep Vein Open Sodium Chloride (Normal Saline) 10 ml IV ASDIRECTED PRN PRN Reason: IV Use Sterile Water (Sterile Water For Irrigation) 1,000 ml IRR ASDIRECTED PRN PRN Reason: delivery Terbutaline Sulfate (Brethine) 0.25 mg SUBCUT ASDIRECTED PRN PRN Reason: Tacysystole Discontinued Medications Acetaminophen/Butalbital/Caffeine (Fioricet 325-50-40 Mg) Confirm Administered Dose 2 tab .ROUTE .STK-MED ONE Stop: 04/13/20 08:58 Last Admin: 04/13/20 09:03 Dose: 2 tab Documented by: Hydralazine HCl (Apresoline) 5 mg IVPUSH ONETIME ONE Stop: 04/13/20 16:59 Last Admin: 04/13/20 17:23 Dose: 5 mg Documented by: Ampicillin Sodium 2 gm/ Sodium (Chloride) 100 mls @ 200 mls/hr IV ONETIME ONE Stop: 04/13/20 10:31 Last Admin: 04/13/20 10:30 Dose: 200 mls/hr Documented by: Fentanyl/Bupivacaine HCl (Fentanyl/Bupivacaine/Ns 2 Mcg-0.125% 250 Ml) Confirm Administered Dose 250 mls @ as directed .ROUTE .STK-MED ONE Stop: 04/13/20 19:49 Oxycodone/Acetaminophen (Percocet 325-5 Mg) 2 tab PO ONETIME ONE Stop: 04/13/20 05:03 Last Admin: 04/13/20 06:01 Dose: 2 tab Documented by:
[2020-04-14] MEDS: Ampicillin 1 GM in Sodium Chloride 0.9% 50 ML IV SCH ×6 (02:00→21:54)
[2020-04-14] MEDS: Misoprostol 25 MCG (1/4 of 100 MCG) Tab PO PRN ×2 (02:09→06:11)
[2020-04-14] MEDS: Misoprostol 25 MCG (1/4 of 100 MCG) Tab VAG PRN ×2 (02:09→06:11)
[2020-04-14] MEDS: Acetaminophen/Butalbital/Caffeine 325-50-40 MG Tab PO PRN ×2 (02:12→21:13)
[2020-04-14] MEDS: NIFEdipine 30 MG Tab.ER PO SCH (09:16)
[2020-04-14] MEDS: Lactated Ringers 1,000 ML IV SCH ×2 (09:22→21:14)
--- NOTE | 2020-04-14 21:35 | PCM.PNLD ---
Labor Progress Note - VS & Meds Vital Signs: Last Vital Signs Temp 97.9 F 04/13/20 04:01 Pulse Resp BP 147/94 H 04/14/20 09:16 Pulse Ox BP 140/86 HR 70 T 96.3 Active Medications: Current Medications Acetaminophen (Tylenol Extra Strength) 1,000 mg PO Q4H PRN PRN Reason: Headache/Pain Last Admin: 04/13/20 04:01 Dose: 1,000 mg Documented by: Acetaminophen/Butalbital/Caffeine (Fioricet 325-50-40 Mg) 1 tab PO Q4H PRN PRN Reason: Pain (moderate 4-6) Last Admin: 04/14/20 21:13 Dose: 1 tab Documented by: Acetaminophen/Butalbital/Caffeine (Fioricet 325-50-40 Mg) 2 tab PO Q4H PRN PRN Reason: Pain (moderate 4-6) Butorphanol Tartrate (Stadol) 1 mg IVPUSH Q1H PRN PRN Reason: Pain Carboprost Tromethamine (Hemabate Ds) 250 mcg IM ASDIRECTED PRN PRN Reason: Post Hemorrhage Lactated Ringer's (Ringers, Lactated) 1,000 mls @ 150 mls/hr IV ASDIRECTED SHILOH Last Admin: 04/14/20 21:14 Dose: 150 mls/hr Documented by: Oxytocin/Sodium Chloride (Oxytocin 30 Unit/500 Ml-Ns) 30 unit in 500 mls @ 500 mls/hr IV TITRATE SHILOH Tranexamic Acid 1,000 mg/ (Sodium Chloride) 110 mls @ 660 mls/hr IV ONETIME PRN PRN Reason: Bleeding Oxytocin/Sodium Chloride (Oxytocin 30 Unit/500 Ml-Ns) 30 unit in 500 mls @ 2 mls/hr IV TITRATE SHILOH; Protocol Last Titration: 04/14/20 17:25 Dose: 20 munits/min, 20 mls/hr Documented by: Ampicillin Sodium 1 gm/ Sodium (Chloride) 50 mls @ 100 mls/hr IV Q4H SHILOH Last Admin: 04/14/20 18:13 Dose: 100 mls/hr Documented by: Lidocaine HCl (Xylocaine 1%) 50 ml INJECT ONETIME PRN PRN Reason: Laceration repair Methylergonovine Maleate (Methergine) 0.2 mg IM ASDIRECTED PRN PRN Reason: Post Hemorrhage Misoprostol (Cytotec) 200 mcg PO ONETIME PRN PRN Reason: Post Hemorrhage Misoprostol (Cytotec) 25 mcg PO Q4H PRN PRN Reason: Cervical Ripening Last Admin: 04/14/20 06:11 Dose: 25 mcg Documented by: Misoprostol (Cytotec) 25 mcg VAG Q4H PRN PRN Reason: Cervical Ripening Last Admin: 04/14/20 06:11 Dose: 25 mcg Documented by: Nalbuphine HCl (Nubain) 10 mg IVPUSH Q1H PRN PRN Reason: Pain (severe 7-10) Nifedipine (Procardia Xl) 60 mg PO DAILY SHILOH Last Admin: 04/14/20 09:16 Dose: 60 mg Documented by: Sodium Chloride (Saline Flush) 10 ml FLUSH ASDIRECTED PRN PRN Reason: Keep Vein Open Sodium Chloride (Saline Flush) 2.5 ml FLUSH ASDIRECTED PRN PRN Reason: Keep Vein Open Sodium Chloride (Normal Saline) 10 ml IV ASDIRECTED PRN PRN Reason: IV Use Sterile Water (Sterile Water For Irrigation) 1,000 ml IRR ASDIRECTED PRN PRN Reason: delivery Terbutaline Sulfate (Brethine) 0.25 mg SUBCUT ASDIRECTED PRN PRN Reason: Tacysystole Discontinued Medications Acetaminophen/Butalbital/Caffeine (Fioricet 325-50-40 Mg) Confirm Administered Dose 2 tab .ROUTE .STK-MED ONE Stop: 04/13/20 08:58 Last Admin: 04/13/20 09:03 Dose: 2 tab Documented by: Hydralazine HCl (Apresoline) 5 mg IVPUSH ONETIME ONE Stop: 04/13/20 16:59 Last Admin: 04/13/20 17:23 Dose: 5 mg Documented by: Ampicillin Sodium 2 gm/ Sodium (Chloride) 100 mls @ 200 mls/hr IV ONETIME ONE Stop: 04/13/20 10:31 Last Admin: 04/13/20 10:30 Dose: 200 mls/hr Documented by: Fentanyl/Bupivacaine HCl (Fentanyl/Bupivacaine/Ns 2 Mcg-0.125% 250 Ml) Confirm Administered Dose 250 mls @ as directed .ROUTE .STK-MED ONE Stop: 04/13/20 19:49 Oxycodone/Acetaminophen (Percocet 325-5 Mg) 2 tab PO ONETIME ONE Stop: 04/13/20 05:03 Last Admin: 04/13/20 06:01 Dose: 2 tab Documented by: - Uterine Contractions Uterine Monitoring Mode: IUPC Contraction Frequency (min): 1-1.5 Contraction Duration (sec): 60 Contraction Intensity: Strong Uterine Resting Tone: Soft - Monitoring Monitor Mode: External Ultrasound Heart Rate (FHR) Baseline: 135 Heart Rate (FHR) Variability: Moderate (6-25 bmp) Accelerations: Absent Decelerations: Late Strip Review: Category II - Vaginal Exam Dilation (cm): 3 Effacement (Percent): 70 Station: -2 Cervical Position: Anterior Sterile Vaginal Exam Performed By: Yisel Robles - Labor Progress (Free Text) Labor Progress: Catia is a 45 yo at 36.3 weeks gestation (KALI 05/11/2019) here today for IOL due to PIH and AMA. Patient hemodynamically stable, afebrile. SVE /-2 after spontaneous expulsion of Padron catheter. AROM, large thick meconium fluid. IUPC inserted. Continue pitocin infusion. Confirmed vertex via SVE and handheld TAUS. Dr. Bowman notified and agreeable with POC.
[2020-04-14] MEDS ORDERED: Ropivacaine HCl/PF 100 ML ONE (21:53)
[2020-04-14] MEDS ORDERED: fentaNYL 100 MCG/2 ML SDV ONE (21:53)
[2020-04-14] MEDS ORDERED: hydrALAZINE 20 MG/ML SDV IVPUSH ONE (22:08)
[2020-04-15] MEDS: Ampicillin 1 GM in Sodium Chloride 0.9% 50 ML IV SCH (02:01)
[2020-04-15] MEDS ORDERED: hydrALAZINE 20 MG/ML SDV ONE (02:22)
[2020-04-15] MEDS ORDERED: Morphine PF 10 MG/10 ML SDV ONE (03:12)
[2020-04-15] MEDS ORDERED: Ondansetron 4 MG/2 ML SDV ONE (03:15)
[2020-04-15] MEDS ORDERED: Oxytocin 10 Units/1 ML SDV ONE (03:15)
[2020-04-15] MEDS ORDERED: Phenylephrine 1% 10 MG/ML SDV ONE (03:15)
[2020-04-15] MEDS ORDERED: Ketorolac 30 MG/ML SDV ONE (03:15)
[2020-04-15] MEDS ORDERED: fentaNYL 100 MCG/2 ML SDV ONE (03:23)
[2020-04-15] MEDS ORDERED: Nalbuphine 10 MG/1 ML Vial IVPUSH PRN (04:16)
[2020-04-15] MEDS ORDERED: fentaNYL 100 MCG/2 ML SDV IVPUSH PRN (04:16)
[2020-04-15] MEDS ORDERED: Acetaminophen/oxyCODONE 325-5 MG Tab PO PRN ×2 (04:16→04:44)
[2020-04-15] MEDS ORDERED: Octyl 2-Cyanoacrylate 1 Tube ONE (04:26)
[2020-04-15] MEDS ORDERED: diphenhydrAMINE 50 MG/ML SDV IVPUSH PRN (04:44)
[2020-04-15] MEDS ORDERED: Bisacodyl 10 MG Supp RECTAL PRN (04:44)
[2020-04-15] MEDS ORDERED: Misoprostol 200 MCG Tab RECTAL PRN (04:44)
[2020-04-15] MEDS ORDERED: Tranexamic Acid 1,000 MG in Sodium Chloride 0.9% 100 ML IV PRN (04:44)
[2020-04-15] MEDS ORDERED: Methylergonovine 0.2 MG/1 ML Amp IM PRN (04:44)
[2020-04-15] MEDS ORDERED: Oxytocin 10 Units/1 ML SDV IM PRN (04:44)
[2020-04-15] MEDS ORDERED: Lanolin 100% Cream 7 GM Tube TOP PRN (04:44)
[2020-04-15] MEDS ORDERED: Ondansetron 4 MG/2 ML SDV IVPUSH PRN (04:44)
[2020-04-15] MEDS ORDERED: Lactated Ringers 1,000 ML IV SCH (04:45)
--- NOTE | 2020-04-15 04:49 | PCM.OPNOTE ---
- General Post-Op/Procedure Note Date of Surgery/Procedure: 04/15/20 Operative Procedure(s): Primary C/section. Pre Op Diagnosis: [id number], PIH, none reassuring FARand faild induction. Post-Op Diagnosis: Same Anesthesia Technique: Epidural Primary Surgeon: Joe [place] Judge: Yisel Robles EBL in mLs: 750 Complications: None Condition: Good
--- NOTE | 2020-04-15 05:08 | PCM.PRNOTE ---
- Free Text/Narrative Note: Anes Note Epidural infusion complete. A new bag of 100 cc 0.2% ropivicaine with 1 mcg cc fentanyl was placed. rate is 8 cc hr with 6 cc q 20 min prn bolus. Patient reports excellent analgesia. Ronald Royal [employer] Time with patient [id number]
--- NOTE | 2020-04-15 05:14 | PCM.POSTAN ---
POST ANESTHESIA ASSESSMENT - MENTAL STATUS Mental Status: Alert - VITAL SIGNS Vital Signs: Last Vital Signs Temp 36.6 C 04/13/20 04:01 Pulse Resp BP 147/94 H 04/14/20 09:16 Pulse Ox - RESPIRATORY Respiratory Status: Respiratory Rate WNL - CARDIOVASCULAR CV Status: Pulse Rate WNL - GASTROINTESTINAL GI Status: No Symptoms - POST OP HYDRATION Hydration Status: Adequate & Stable
[2020-04-15] MEDS: NIFEdipine 30 MG Tab.ER PO SCH (08:45)
[2020-04-15] MEDS: Docusate Sodium 100 MG Cap PO SCH ×2 (08:45→22:08)
[2020-04-15] MEDS: Ketorolac 30 MG/ML SDV IVPUSH SCH ×3 (10:07→22:08)
[2020-04-16] MEDS: Ketorolac 30 MG/ML SDV IVPUSH SCH (04:37)
--- NOTE | 2020-04-16 07:19 | PCM48HPAN ---
Post Anesthesia Note - EVALUATION WITHIN 48HRS OF ANESTHETIC Vital Signs in Normal Range: Yes Patient Participated in Evaluation: Yes Respiratory Function Stable: Yes Airway Patent: Yes Cardiovascular Function Stable: Yes Hydration Status Stable: Yes Pain Control Satisfactory: Yes Nausea and Vomiting Control Satisfactory: Yes Mental Status Recovered: Yes Vital Signs: Last Vital Signs Temp 36.0 C L 04/16/20 04:36 Pulse 89 04/16/20 04:36 Resp 18 04/16/20 04:36 BP 125/76 04/15/20 19:43 Pulse Ox 96 04/16/20 04:36
[2020-04-16] MEDS: Docusate Sodium 100 MG Cap PO SCH ×2 (09:33→21:02)
[2020-04-16] MEDS: NIFEdipine 30 MG Tab.ER PO SCH (09:33)
[2020-04-16] MEDS ORDERED: Ibuprofen 800 MG Tab PO PRN (10:00)
--- NOTE | 2020-04-16 14:27 | PCM.PNPP ---
- General Info Date of Service: 04/16/20 Functional Status: Reports: Pain Controlled - Review of Systems General: Reports: No Symptoms HEENT: Reports: No Symptoms Pulmonary: Reports: No Symptoms Cardiovascular: Reports: No Symptoms Gastrointestinal: Reports: No Symptoms Genitourinary: Reports: No Symptoms Musculoskeletal: Reports: No Symptoms Skin: Reports: No Symptoms Neurological: Reports: No Symptoms Psychiatric: Reports: No Symptoms - General Info Date of Service: 04/16/20 - Patient Data Vital Signs - Most Recent: Last Vital Signs Temp 36.6 C 04/16/20 07:43 Pulse 91 04/16/20 11:41 Resp 16 04/16/20 07:43 BP 132/73 04/16/20 14:08 Pulse Ox 95 04/16/20 07:43 Weight - Most Recent: 107.048 kg I&O - Last 24 Hours: Intake & Output 04/15/20 04/16/20 04/16/20 22:59 06:59 14:59 Intake Total 700 Output Total 1000 1500 Balance -1000 -800 Lab Results - Last 24 Hours: Laboratory Results - last 24 hr 04/16/20 Range/Units 05:30 Hgb 11.1 L (12.0-16.0) g/dL Hct 34.0 L (36.0-46.0) % Med Orders - Current: Current Medications Acetaminophen (Tylenol Extra Strength) 1,000 mg PO Q4H PRN PRN Reason: Headache/Pain Last Admin: 04/13/20 04:01 Dose: 1,000 mg Documented by: Acetaminophen/Butalbital/Caffeine (Fioricet 325-50-40 Mg) 1 tab PO Q4H PRN PRN Reason: Pain (moderate 4-6) Last Admin: 04/14/20 21:13 Dose: 1 tab Documented by: Acetaminophen/Butalbital/Caffeine (Fioricet 325-50-40 Mg) 2 tab PO Q4H PRN PRN Reason: Pain (moderate 4-6) Bisacodyl (Dulcolax) 10 mg RECTAL ONETIME PRN PRN Reason: Constipation Butorphanol Tartrate (Stadol) 1 mg IVPUSH Q1H PRN PRN Reason: Pain Carboprost Tromethamine (Hemabate Ds) 250 mcg IM ASDIRECTED PRN PRN Reason: Post Hemorrhage Diphenhydramine HCl (Benadryl) 25 mg IVPUSH Q6H PRN PRN Reason: Itching or Nausea Docusate Sodium (Colace) 100 mg PO BID [facility] Last Admin: 04/16/20 09:33 Dose: 100 mg Documented by: Emollient Ointment (Lansinoh Hpa) 0 gm TOP ASDIRECTED PRN PRN Reason: Sore Nipples Oxytocin/Sodium Chloride (Oxytocin 30 Unit/500 Ml-Ns) 30 unit in 500 mls @ 500 mls/hr IV TITRATE [facility] Lactated Ringer's (Ringers, Lactated) 1,000 mls @ 125 mls/hr IV ASDIRECTED [facility] Tranexamic Acid 1,000 mg/ (Sodium Chloride) 110 mls @ 660 mls/hr IV ONETIME PRN PRN Reason: Bleeding Ibuprofen (Motrin) 800 mg PO Q8H PRN PRN Reason: mild pain or fever Lidocaine HCl (Xylocaine 1%) 50 ml INJECT ONETIME PRN PRN Reason: Laceration repair Methylergonovine Maleate (Methergine) 0.2 mg IM ASDIRECTED PRN PRN Reason: Post Hemorrhage Misoprostol (Cytotec) 200 mcg PO ONETIME PRN PRN Reason: Post Hemorrhage Misoprostol (Cytotec) 1,000 mcg RECTAL ONETIME PRN PRN Reason: excessive bleeding Nalbuphine HCl (Nubain) 10 mg IVPUSH Q1H PRN PRN Reason: Pain (severe 7-10) Nifedipine (Procardia Xl) 60 mg PO DAILY [facility] Last Admin: 04/16/20 09:33 Dose: 60 mg Documented by: Ondansetron HCl (Zofran) 4 mg IVPUSH Q4H PRN PRN Reason: Nausea/Vomiting Oxycodone/Acetaminophen (Percocet 325-5 Mg) 1 tab PO ONETIME PRN PRN Reason: Pain (moderate 4-6) Oxycodone/Acetaminophen (Percocet 325-5 Mg) 1 tab PO Q4H PRN PRN Reason: Pain (moderate 4-6) Oxycodone/Acetaminophen (Percocet 325-5 Mg) 2 tab PO Q4H PRN PRN Reason: Pain (moderate 4-6) Oxytocin (Pitocin) 10 unit IM ASDIRECTED PRN PRN Reason: Excessive Vaginal Bleeding Sodium Chloride (Saline Flush) 10 ml FLUSH ASDIRECTED PRN PRN Reason: Keep Vein Open Sodium Chloride (Saline Flush) 2.5 ml FLUSH ASDIRECTED PRN PRN Reason: Keep Vein Open Sodium Chloride (Normal Saline) 10 ml IV ASDIRECTED PRN PRN Reason: IV Use Sterile Water (Sterile Water For Irrigation) 1,000 ml IRR ASDIRECTED PRN PRN Reason: delivery Terbutaline Sulfate (Brethine) 0.25 mg SUBCUT ASDIRECTED PRN PRN Reason: Tacysystole Discontinued Medications Acetaminophen/Butalbital/Caffeine (Fioricet 325-50-40 Mg) Confirm Administered Dose 2 tab .ROUTE .STK-MED ONE Stop: 04/13/20 08:58 Last Admin: 04/13/20 09:03 Dose: 2 tab Documented by: Fentanyl (Sublimaze) Confirm Administered Dose 100 mcg .ROUTE .STK-MED ONE Stop: 04/14/20 21:54 Fentanyl (Sublimaze) Confirm Administered Dose 100 mcg .ROUTE .STK-MED ONE Stop: 04/15/20 03:24 Fentanyl (Sublimaze) 50 mcg IVPUSH Q5M PRN PRN Reason: Pain (severe 7-10) Stop: 04/16/20 04:16 Hydralazine HCl (Apresoline) 5 mg IVPUSH ONETIME ONE Stop: 04/13/20 16:59 Last Admin: 04/13/20 17:23 Dose: 5 mg Documented by: Hydralazine HCl (Apresoline) 5 mg IVPUSH ONETIME ONE Stop: 04/14/20 22:09 Last Admin: 04/15/20 02:34 Dose: Not Given Documented by: Hydralazine HCl (Apresoline) Confirm Administered Dose 20 mg .ROUTE .STK-MED ONE Stop: 04/15/20 02:23 Lactated Ringer's (Ringers, Lactated) 1,000 mls @ 150 mls/hr IV ASDIRECTED [facility] Last Admin: 04/14/20 21:14 Dose: 150 mls/hr Documented by: Tranexamic Acid 1,000 mg/ (Sodium Chloride) 110 mls @ 660 mls/hr IV ONETIME PRN PRN Reason: Bleeding Oxytocin/Sodium Chloride (Oxytocin 30 Unit/500 Ml-Ns) 30 unit in 500 mls @ 2 mls/hr IV TITRATE [facility]; Protocol Last Titration: 04/14/20 17:25 Dose: 20 munits/min, 20 mls/hr Documented by: Ampicillin Sodium 2 gm/ Sodium (Chloride) 100 mls @ 200 mls/hr IV ONETIME ONE Stop: 04/13/20 10:31 Last Admin: 04/13/20 10:30 Dose: 200 mls/hr Documented by: Ampicillin Sodium 1 gm/ Sodium (Chloride) 50 mls @ 100 mls/hr IV Q4H [facility] Last Admin: 04/15/20 02:01 Dose: 100 mls/hr Documented by: Fentanyl/Bupivacaine HCl (Fentanyl/Bupivacaine/Ns 2 Mcg-0.125% 250 Ml) Confirm Administered Dose 250 mls @ as directed .ROUTE .STK-MED ONE Stop: 04/13/20 19:49 Ropivacaine (Naropin 0.2%) Confirm Administered Dose 100 mls @ as directed .ROUTE .STK-MED ONE Stop: 04/14/20 21:54 Ketorolac Tromethamine (Toradol) Confirm Administered Dose 30 mg .ROUTE .STK-MED ONE Stop: 04/15/20 03:16 Ketorolac Tromethamine (Toradol) 30 mg IVPUSH Q6H [facility] Stop: 04/16/20 04:01 Last Admin: 04/16/20 04:37 Dose: 30 mg Documented by: Methylergonovine Maleate (Methergine) 0.2 mg IM ONETIME PRN PRN Reason: Excessive Vaginal Bleeding Misoprostol (Cytotec) 25 mcg PO Q4H PRN PRN Reason: Cervical Ripening Last Admin: 04/14/20 06:11 Dose: 25 mcg Documented by: Misoprostol (Cytotec) 25 mcg VAG Q4H PRN PRN Reason: Cervical Ripening Last Admin: 04/14/20 06:11 Dose: 25 mcg Documented by: Morphine Sulfate (Duramorph Pf) Confirm Administered Dose 10 mg .ROUTE .STK-MED ONE Stop: 04/15/20 03:13 Nalbuphine HCl (Nubain) 2.5 mg IVPUSH Q3H PRN PRN Reason: Pruritis Stop: 04/16/20 04:17 Octyl Cyanoacrylate (Dermabond Advance) Confirm Administered Dose 1 applic .ROUTE .STK-MED ONE Stop: 04/15/20 04:27 Ondansetron HCl (Zofran) Confirm Administered Dose 4 mg .ROUTE .STK-MED ONE Stop: 04/15/20 03:16 Oxycodone/Acetaminophen (Percocet 325-5 Mg) 2 tab PO ONETIME ONE Stop: 04/13/20 05:03 Last Admin: 04/13/20 06:01 Dose: 2 tab Documented by: Oxytocin (Pitocin) Confirm Administered Dose 20 unit .ROUTE .STK-MED ONE Stop: 04/15/20 03:16 Phenylephrine HCl (Benoit-Synephrine) Confirm Administered Dose 10 mg .ROUTE .STK- MED ONE Stop: 04/15/20 03:16 - Interaction Disposition, : [place] in Room with Family Infant Interaction: Holding Infant Infant Feeding: Attempted ; Nursed Fair/Poor Support Person: Significant Other - Recovery Exam Fundal Tone: Firm Fundal Level: 1 Fingerbreadths Below Umbilicus Fundal Placement: Midline Lochia Amount: Scant Lochia Color: Rubra/Red Perineum Description: Intact, Minimal Bruising/Swelling Episiotomy/Laceration: None Bladder Status: Voiding Urinary Elimination: Indwelling Catheter - Exam General: Alert, Oriented HEENT: Pupils Equal Neck: Supple Lungs: Clear to Auscultation, Normal Respiratory Effort Cardiovascular: Regular Rate, Regular Rhythm GI/Abdominal Exam: Normal Bowel Sounds, Soft, Non-Tender, No Organomegaly, No Distention, No Abnormal Bruit, No Mass, Pelvis Stable Extremities: Normal Inspection, Normal Range of Motion, Non-Tender, No Pedal Edema, Normal Capillary Refill Skin: Warm, Dry, Intact Wound/Incisions: Healing Well Neurological: No New Focal Deficit Psy/Mental Status: Alert, Normal Affect, Normal Mood - Problem List Review Problem List Initiated/Reviewed/Updated: Yes - My Orders Last 24 Hours: My Active Orders 04/16/20 10:00 Ibuprofen [Motrin] 800 mg PO Q8H PRN - Assessment Assessment:: Doing well will send home in am. - Plan Plan:: Admit A: presenting at 36 2/7 weeks (KALI: 05/09/20) with increasing BPs; leonard tored overnight last night. Dr. Bowman advised induction of labor this AM. O+, rubella immune, GBS pending. P: Induction of labor; cytotec to pitocin; epidural PRN; anticipate ; Dr. Bowman updated.
[2020-04-16] MEDS: Acetaminophen/Butalbital/Caffeine 325-50-40 MG Tab PO PRN (20:58)
[2020-04-17] MEDS: Acetaminophen/oxyCODONE 325-5 MG Tab PO PRN ×2 (01:26→05:16)
[2020-04-17] MEDS: Docusate Sodium 100 MG Cap PO SCH (08:13)
[2020-04-17] MEDS: NIFEdipine 30 MG Tab.ER PO SCH (08:13)
--- NOTE | 2020-04-17 08:38 | OR ---
SURGEON: Joe Bowman MD DATE OF PROCEDURE: 04/15/2020 PREOPERATIVE DIAGNOSES: 1. Intrauterine at 36 plus 3. 2. Advanced maternal age. 3. -induced hypertension. 4. Failed induction. 5. Nonreassuring heart rate. 6. Remote from delivery. POSTOPERATIVE DIAGNOSES: 1. Intrauterine at 36 plus 3. 2. Advanced maternal age. 3. -induced hypertension. 4. Failed induction. 5. Nonreassuring heart rate. 6. Remote from delivery. OPERATION PERFORMED: Primary low-transverse section. PRIMARY SURGEON: Joe Bowman MD INORGANIC CHEMISTRY TEACHER: Yisel Robles CNM ANESTHESIA: Epidural. ANESTHESIOLOGISTS: Mr. Ronald Royal and Dr. Lomax. ESTIMATED BLOOD LOSS: 750 mL. COMPLICATIONS: None. INDICATIONS FOR SURGERY: This patient is 45. She is para 3-0-0-3. She is followed in our practice primarily by our Nurse Midwifery Service. The patient is 36 plus 3. She had elevated blood pressure, and her blood pressure is ranging anywhere between 150/105 to 140/100. She started having a headache. Because of this, we elected to admit the patient for induction. We tried Cytotec for induction, there was very slow induction, and then Pitocin. The patient was ruptured at 3 cm. Meconium was noted at the time of the rupturing of the membrane. The patient had epidural anesthesia for labor analgesia. She progressed rather very slowly, and when she was 4 to 5 cm, her heart rate tracing was flat with no variability and occasional subtle late deceleration. I came to evaluate the patient because of the status of the heart rate, and the patient is not remote from delivery. Decision was made to do a section. I discussed that with the patient and her and explained to them the rationale. They agreed to the section, and we proceeded for that. PROCEDURE IN DETAIL: The patient was brought to the OR and properly identified. After an adequate level of epidural anesthesia, with a Meneses catheter in the bladder, and with the patient prepped and draped in sterile fashion as usual, a low-transverse Pfannenstiel skin incision was done. Chay fascia and rectus fascia were opened in the direction of the incision. The 2 recti muscles were . The peritoneal cavity was entered. A bladder flap was raised in the usual manner, and then, a low-transverse uterine incision was done and extended manually, and the fetus was in the vertex position and delivered without any problem. One nuchal cord was noted. The fetus cried slowly. The fetus was handed to the resuscitating team, which was headed by the camera engineer, who was present at the time of the delivery. The placenta delivered spontaneous, complete, and intact and was sent for histopathology, and then, repair of the lower uterine segment was done with 2-0 Vicryl continuous interlocking for hemostasis. The peritoneal cavity was evacuated completely from all blood and blood clot and closed with 3-0 Vicryl continuous. Next, the rectus fascia was closed with #1 PDS double strand continuous and Chay fascia with 3-0 Vicryl continuous and the skin closed with 3-0 on a Kareem needle in a subcuticular fashion, and Dermabond was used to seal the incision. Instrument and sponge count was correct. The patient tolerated the procedure well and went to the recovery room in stable general condition. NAOMI / TEE /[id number]
--- NOTE | 2020-04-17 09:28 | PCM.DCSUM1 ---
Discharge Summary - Hospital Course Diagnosis: Stroke: No - Discharge Data Discharge Date: 04/17/20 Discharge Disposition: Home, Self-Care 01 Condition: Good - Referral to Home Health Primary Care Physician: PCP None - Patient Summary/Data Operative Procedure(s) Performed: Primary C/section. - Patient Instructions Diet: Usual Diet as Tolerated Activity: As Tolerated Driving: Do Not Drive Showering/Bathing: May Shower - Discharge Plan Home Medications: Home Meds Multivitamin [Multivitamins] 1 each PO DAILY 08/24/18 [History] Referrals: [facility] [Outside] Joe Bowman MD [Physician] - 04/24/20 2:45 pm Yisel Robles CNM [Mid-] - 05/25/20 1:15 pm - Discharge Summary/Plan Comment DC Time >30 min.: Yes - General Info Date of Service: 04/17/20 Functional Status: Reports: Pain Controlled - Review of Systems General: Reports: No Symptoms HEENT: Reports: No Symptoms Pulmonary: Reports: No Symptoms Cardiovascular: Reports: No Symptoms Gastrointestinal: Reports: No Symptoms Genitourinary: Reports: No Symptoms Musculoskeletal: Reports: No Symptoms Skin: Reports: No Symptoms Neurological: Reports: No Symptoms Psychiatric: Reports: No Symptoms - Patient Data Vitals - Most Recent: Last Vital Signs Temp 36.6 C 04/17/20 07:30 Pulse 83 04/17/20 07:30 Resp 16 04/17/20 07:30 BP 135/74 04/17/20 08:13 Pulse Ox 98 04/17/20 07:30 Weight - Most Recent: 107.048 kg Med Orders - Current: Current Medications Acetaminophen (Tylenol Extra Strength) 1,000 mg PO Q4H PRN PRN Reason: Headache/Pain Last Admin: 04/13/20 04:01 Dose: 1,000 mg Documented by: Acetaminophen/Butalbital/Caffeine (Fioricet 325-50-40 Mg) 1 tab PO Q4H PRN PRN Reason: Pain (moderate 4-6) Last Admin: 04/16/20 20:58 Dose: 1 tab Documented by: Acetaminophen/Butalbital/Caffeine (Fioricet 325-50-40 Mg) 2 tab PO Q4H PRN PRN Reason: Pain (moderate 4-6) Last Admin: 04/16/20 15:23 Dose: 2 tab Documented by: Bisacodyl (Dulcolax) 10 mg RECTAL ONETIME PRN PRN Reason: Constipation Butorphanol Tartrate (Stadol) 1 mg IVPUSH Q1H PRN PRN Reason: Pain Carboprost Tromethamine (Hemabate Ds) 250 mcg IM ASDIRECTED PRN PRN Reason: Post Hemorrhage Diphenhydramine HCl (Benadryl) 25 mg IVPUSH Q6H PRN PRN Reason: Itching or Nausea Docusate Sodium (Colace) 100 mg PO BID [facility] Last Admin: 04/17/20 08:13 Dose: 100 mg Documented by: Emollient Ointment (Lansinoh Hpa) 0 gm TOP ASDIRECTED PRN PRN Reason: Sore Nipples Oxytocin/Sodium Chloride (Oxytocin 30 Unit/500 Ml-Ns) 30 unit in 500 mls @ 500 mls/hr IV TITRATE [facility] Lactated Ringer's (Ringers, Lactated) 1,000 mls @ 125 mls/hr IV ASDIRECTED [facility] Tranexamic Acid 1,000 mg/ (Sodium Chloride) 110 mls @ 660 mls/hr IV ONETIME PRN PRN Reason: Bleeding Ibuprofen (Motrin) 800 mg PO Q8H PRN PRN Reason: mild pain or fever Lidocaine HCl (Xylocaine 1%) 50 ml INJECT ONETIME PRN PRN Reason: Laceration repair Methylergonovine Maleate (Methergine) 0.2 mg IM ASDIRECTED PRN PRN Reason: Post Hemorrhage Misoprostol (Cytotec) 200 mcg PO ONETIME PRN PRN Reason: Post Hemorrhage Misoprostol (Cytotec) 1,000 mcg RECTAL ONETIME PRN PRN Reason: excessive bleeding Nalbuphine HCl (Nubain) 10 mg IVPUSH Q1H PRN PRN Reason: Pain (severe 7-10) Nifedipine (Procardia Xl) 60 mg PO DAILY [facility] Last Admin: 04/17/20 08:13 Dose: 60 mg Documented by: Ondansetron HCl (Zofran) 4 mg IVPUSH Q4H PRN PRN Reason: Nausea/Vomiting Oxycodone/Acetaminophen (Percocet 325-5 Mg) 1 tab PO ONETIME PRN PRN Reason: Pain (moderate 4-6) Oxycodone/Acetaminophen (Percocet 325-5 Mg) 1 tab PO Q4H PRN PRN Reason: Pain (moderate 4-6) Last Admin: 04/17/20 05:16 Dose: 1 tab Documented by: Oxycodone/Acetaminophen (Percocet 325-5 Mg) 2 tab PO Q4H PRN PRN Reason: Pain (moderate 4-6) Oxytocin (Pitocin) 10 unit IM ASDIRECTED PRN PRN Reason: Excessive Vaginal Bleeding Sodium Chloride (Saline Flush) 10 ml FLUSH ASDIRECTED PRN PRN Reason: Keep Vein Open Sodium Chloride (Saline Flush) 2.5 ml FLUSH ASDIRECTED PRN PRN Reason: Keep Vein Open Sodium Chloride (Normal Saline) 10 ml IV ASDIRECTED PRN PRN Reason: IV Use Sterile Water (Sterile Water For Irrigation) 1,000 ml IRR ASDIRECTED PRN PRN Reason: delivery Terbutaline Sulfate (Brethine) 0.25 mg SUBCUT ASDIRECTED PRN PRN Reason: Tacysystole Discontinued Medications Acetaminophen/Butalbital/Caffeine (Fioricet 325-50-40 Mg) Confirm Administered Dose 2 tab .ROUTE .STK-MED ONE Stop: 04/13/20 08:58 Last Admin: 04/13/20 09:03 Dose: 2 tab Documented by: Fentanyl (Sublimaze) Confirm Administered Dose 100 mcg .ROUTE .STK-MED ONE Stop: 04/14/20 21:54 Fentanyl (Sublimaze) Confirm Administered Dose 100 mcg .ROUTE .STK-MED ONE Stop: 04/15/20 03:24 Fentanyl (Sublimaze) 50 mcg IVPUSH Q5M PRN PRN Reason: Pain (severe 7-10) Stop: 04/16/20 04:16 Hydralazine HCl (Apresoline) 5 mg IVPUSH ONETIME ONE Stop: 04/13/20 16:59 Last Admin: 04/13/20 17:23 Dose: 5 mg Documented by: Hydralazine HCl (Apresoline) 5 mg IVPUSH ONETIME ONE Stop: 04/14/20 22:09 Last Admin: 04/15/20 02:34 Dose: Not Given Documented by: Hydralazine HCl (Apresoline) Confirm Administered Dose 20 mg .ROUTE .STK-MED ONE Stop: 04/15/20 02:23 Lactated Ringer's (Ringers, Lactated) 1,000 mls @ 150 mls/hr IV ASDIRECTED [facility] Last Admin: 04/14/20 21:14 Dose: 150 mls/hr Documented by: Tranexamic Acid 1,000 mg/ (Sodium Chloride) 110 mls @ 660 mls/hr IV ONETIME PRN PRN Reason: Bleeding Oxytocin/Sodium Chloride (Oxytocin 30 Unit/500 Ml-Ns) 30 unit in 500 mls @ 2 mls/hr IV TITRATE [facility]; Protocol Last Titration: 04/14/20 17:25 Dose: 20 munits/min, 20 mls/hr Documented by: Ampicillin Sodium 2 gm/ Sodium (Chloride) 100 mls @ 200 mls/hr IV ONETIME ONE Stop: 04/13/20 10:31 Last Admin: 04/13/20 10:30 Dose: 200 mls/hr Documented by: Ampicillin Sodium 1 gm/ Sodium (Chloride) 50 mls @ 100 mls/hr IV Q4H [facility] Last Admin: 04/15/20 02:01 Dose: 100 mls/hr Documented by: Fentanyl/Bupivacaine HCl (Fentanyl/Bupivacaine/Ns 2 Mcg-0.125% 250 Ml) Confirm Administered Dose 250 mls @ as directed .ROUTE .STK-MED ONE Stop: 04/13/20 19:49 Ropivacaine (Naropin 0.2%) Confirm Administered Dose 100 mls @ as directed .ROUTE .STK-MED ONE Stop: 04/14/20 21:54 Ketorolac Tromethamine (Toradol) Confirm Administered Dose 30 mg .ROUTE .STK-MED ONE Stop: 04/15/20 03:16 Ketorolac Tromethamine (Toradol) 30 mg IVPUSH Q6H [facility] Stop: 04/16/20 04:01 Last Admin: 04/16/20 04:37 Dose: 30 mg Documented by: Methylergonovine Maleate (Methergine) 0.2 mg IM ONETIME PRN PRN Reason: Excessive Vaginal Bleeding Misoprostol (Cytotec) 25 mcg PO Q4H PRN PRN Reason: Cervical Ripening Last Admin: 04/14/20 06:11 Dose: 25 mcg Documented by: Misoprostol (Cytotec) 25 mcg VAG Q4H PRN PRN Reason: Cervical Ripening Last Admin: 04/14/20 06:11 Dose: 25 mcg Documented by: Morphine Sulfate (Duramorph Pf) Confirm Administered Dose 10 mg .ROUTE .STK-MED ONE Stop: 04/15/20 03:13 Nalbuphine HCl (Nubain) 2.5 mg IVPUSH Q3H PRN PRN Reason: Pruritis Stop: 04/16/20 04:17 Octyl Cyanoacrylate (Dermabond Advance) Confirm Administered Dose 1 applic .ROUTE .STK-MED ONE Stop: 04/15/20 04:27 Ondansetron HCl (Zofran) Confirm Administered Dose 4 mg .ROUTE .STK-MED ONE Stop: 04/15/20 03:16 Oxycodone/Acetaminophen (Percocet 325-5 Mg) 2 tab PO ONETIME ONE Stop: 04/13/20 05:03 Last Admin: 04/13/20 06:01 Dose: 2 tab Documented by: Oxytocin (Pitocin) Confirm Administered Dose 20 unit .ROUTE .STK-MED ONE Stop: 04/15/20 03:16 Phenylephrine HCl (Benoit-Synephrine) Confirm Administered Dose 10 mg .ROUTE .STK- MED ONE Stop: 04/15/20 03:16 - Exam General: Reports: Alert, Oriented HEENT: Reports: Pupils Equal, Pupils Reactive, EOMI, Mucous Membr. Moist/[place] Neck: Reports: Supple Lungs: Reports: Clear to Auscultation, Normal Respiratory Effort Cardiovascular: Reports: Regular Rate, Regular Rhythm GI/Abdominal Exam: Normal Bowel Sounds, Soft, Non-Tender, No Organomegaly, No Distention, No Abnormal Bruit, No Mass, Pelvis Stable (Female) Exam: Normal External Exam, Normal Speculum Exam, Normal Bimanual Exam Rectal (Female) Exam: Normal Exam, Normal Rectal Tone Back Exam: Reports: Normal Inspection, Full Range of Motion Extremities: Normal Inspection, Normal Range of Motion, Non-Tender, No Pedal Edema, Normal Capillary Refill Skin: Reports: Warm, Dry, Intact Wound/Incisions: Reports: Healing Well Neurological: Reports: No New Focal Deficit Psy/Mental Status: Reports: Alert, Normal Affect, Normal Mood
[2020-04-17 16:39] VITALS: BP 145/88; PULSE 87
== END 2020-04-17 17:20 | disposition home or self-care (01) | DRG 788 ==
LOC: MW.OBCHECK → MW.OB 00:01 → MW.OBCHECK 00:10 → MW.OB 00:11 → MW.OBCHECK 00:11 → OBSVTOIN 04-15 04:06 → MW.OB 04-15 09:13
PROVIDERS: ADMIT Obstetrics & Gynecology; ATTEND Obstetrics & Gynecology
PROC: 10D00Z1 Extraction of Products of Conception, Low, Open Approach (ICD-10-PCS; principal; 2020-04-15)
DX: O13.4 Gestational [pregnancy-induced] hypertension without significant proteinuria, complicating childbirth (principal); Z3A.36 36 weeks gestation of pregnancy; Z37.0 Single live birth; O76 Abnormality in fetal heart rate and rhythm complicating labor and delivery; Z20.828 Contact with and (suspected) exposure to other viral communicable diseases
CPT/HCPCS: 01967; 01968; 36415; 51702; 59025; 80053; 84156; 84550; 85014; 85018; 85027; 86592; 86850; 86900; 86901; 88307; A9270-GY; J0290; J0360; J1885; J2270; J2370; J2405; J2590; J2795; J3010; J7050; J7120; U0002

== ENCOUNTER 2020-10-07 17:19 | Emergency (ER) | payer OTHER ==
[2020-10-07] MEDS ORDERED: Albuterol/Ipratropium 3.0-0.5 MG/3 ML Neb Soln NEB ONE (17:39)
--- NOTE | 2020-10-07 17:43 | EDM.PDOC ---
<Omar Ni - Last Filed: 10/07/20 18:14> ED HPI GENERAL MEDICAL PROBLEM - General Chief Complaint: Respiratory Problem Stated Complaint: POSSIBLE PNEUMONIA Time Seen by Provider: 10/07/20 17:34 Source of Information: Reports: Patient History Limitations: Reports: No Limitations - History of Present Illness INITIAL COMMENTS - FREE TEXT/NARRATIVE: Patient is a 45-year-old female who presents today for shortness of breath and cough since . Patient states he feels like she cannot get any air in and the shortness of breath is worse with ambulation. Patient that she has been having a productive cough with green sputum. Patient denies any fever chills chest pain abdominal pain recent travels or leg swelling. Patient that she still tolerating p.o. has not had any nausea or vomiting. - Related Data Allergies Allergy/AdvReac Type Severity Reaction Status Date / Time No Known Allergies Allergy Verified 10/07/20 17:29 Home Meds: Home Meds Multivitamin [Multivitamins] 1 each PO DAILY 08/24/18 [History] Azithromycin [Zithromax] 250 mg PO DAILY #4 tab 10/07/20 [Rx] Past Medical History - Past Health History Medical/Surgical History: Denies Medical/Surgical History - Infectious Disease History Infectious Disease History: Reports: Chicken Pox - Past Surgical History GI Surgical History: Reports: Cholecystectomy Social & Family History - Family History Family Medical History: No Pertinent Family History - Caffeine Use Caffeine Use: Reports: Soda ED ROS GENERAL - Review of Systems Review Of Systems: See Below Constitutional: Reports: No Symptoms HEENT: Reports: No Symptoms Respiratory: Reports: Shortness of Breath Cardiovascular: Reports: No Symptoms Endocrine: Reports: No Symptoms GI/Abdominal: Reports: No Symptoms : Reports: No Symptoms Musculoskeletal: Reports: No Symptoms Skin: Reports: No Symptoms Neurological: Reports: No Symptoms Psychiatric: Reports: No Symptoms Hematologic/Lymphatic: Reports: No Symptoms Immunologic: Reports: No Symptoms ED EXAM, GENERAL - Physical Exam Exam: See Below Exam Limited By: No Limitations General Appearance: Alert, WD/WN, No Apparent Distress Respiratory/Chest: Rhonchi, Wheezing Cardiovascular: Normal Peripheral Pulses, Regular Rate, Rhythm GI/Abdominal: Normal Bowel Sounds, Soft, Non-Tender Extremities: Normal Inspection, Normal Range of Motion Neurological: Alert, Oriented, CN II-XII Intact, Normal Cognition, Normal Gait #1 Interpretation EKG Date: 10/07/20 Time: 18:10 Rhythm: Other (sinus tach) Rate (Beats/Min): 104 ST-T: Normal Departure - Departure Disposition: Home, Self-Care 01 Clinical Impression: Community acquired pneumonia - Discharge Information Prescriptions: Azithromycin [Zithromax] 250 mg PO DAILY #4 tab Instructions: Community-Acquired Pneumonia, Adult, [id number] Referrals: PCP,None [Primary Care Provider] - Forms: ED Department Discharge Additional Instructions: Drink plenty of fluids and use the inhaler. Have chosen not to continue steroids since you have a most likely bacterial infection. [facility] [address] [place] [id number] [facility] [address] [place] [id number] The following information is given to patients seen in the emergency department who are being discharged to home. This information is to outline your options for follow-up care. We provide all patients seen in our emergency department with a follow-up referral. The need for follow-up, as well as the timing and circumstances, are variable depending upon the specifics of your emergency department visit. If you don't have a primary care physician on staff, we will provide you with a referral. We always advise you to contact your personal physician following an emergency department visit to inform them of the circumstance of the visit and for follow-up with them and/or the need for any referrals to a consulting specialist. The emergency department will also refer you to a specialist when appropriate. This referral assures that you have the opportunity for follow-up care with a specialist. All of these measure are taken in an effort to provide you with optimal care, which includes your follow-up. Under all circumstances we always encourage you to contact your private physician who remains a resource for coordinating your care. When calling for follow-up care, please make the office aware that this follow-up is from your recent emergency room visit. If for any reason you are refused follow-up, please contact the [facility] Emergency Department at and asked to speak to the emergency department charge nurse. Sepsis Event Note (ED) - Evaluation Sepsis Screening Result: No Definite Risk - Assessment/Plan Plan: Patient is a 45-year-old female who presents today for shortness of breath and cough. Patient is satting 90% on room air. Will place on 2 L nasal cannula. Patient also slightly tachycardic as well will obtain labs EKG x-ray and reassess. <Jeovany Loera - Last Filed: 10/07/20 21:51> Course - Vital Signs Text/Narrative:: Patient's feels better after breathing treatment. She is coughing. She is awaiting the CT results. She has seasonal allergies. Impression is that she has bronchospasm secondary to allergies. Plan is to treat with steroids and an inhaler. Last Recorded V/S: Last Vital Signs Temp 36.6 C 10/07/20 17:30 Pulse 91 10/07/20 20:53 Resp 18 10/07/20 20:53 BP 138/47 L 10/07/20 20:53 Pulse Ox 95 10/07/20 20:53 - Orders/Labs/Meds Orders: Active Orders 24 hr Category Date Time Status EKG 12 Lead [EKG Documentation Completion] [RC] STAT Care 10/07/20 17:43 Active Azithromycin [Zithromax] Med 10/07/20 21:49 Stat 500 mg PO STAT STA Medication Orders Azithromycin (Azithromycin 250 Mg Tab) 500 mg PO STAT STA Stop: 10/07/20 21:50 Labs: Laboratory Tests 10/07/20 10/07/20 10/07/20 Range/Units 18:09 18:09 18:09 WBC 10.26 (4.0-11.0) K/uL RBC 5.13 (4.30-5.90) M/uL Hgb 12.3 (12.0-16.0) g/dL Hct 40.0 (36.0-46.0) % MCV 78.0 L (80.0-98.0) fL MCH 24.0 L (27.0-32.0) pg MCHC 30.8 L (31.0-37.0) g/dL RDW Std Deviation 47.5 (28.0-62.0) fl RDW Coeff of Monster 17 H (11.0-15.0) % Plt Count 304 (150-400) K/uL MPV 10.00 (7.40-12.00) fL Neut % (Auto) 75.8 (48.0-80.0) % Lymph % (Auto) 15.1 L (16.0-40.0) % Gentry % (Auto) 5.4 (0.0-15.0) % Eos % (Auto) 3.5 (0.0-7.0) % Baso % (Auto) 0.2 (0.0-1.5) % Neut # (Auto) 7.8 H (1.4-5.7) K/uL Lymph # (Auto) 1.6 (0.6-2.4) K/uL Gentry # (Auto) 0.6 (0.0-0.8) K/uL Eos # (Auto) 0.4 (0.0-0.7) K/uL Baso # (Auto) 0.0 (0.0-0.1) K/uL Nucleated RBC % 0.0 /100WBC Nucleated RBCs # 0 K/uL D-Dimer, Quantitative (0.0-0.50) mg/L FEU Lactate 1.2 (0.20-2.00) mmol/L Sodium 138 (136-145) mmol/L Potassium 3.8 (3.5-5.1) mmol/L Chloride 104 (98-107) mmol/L Carbon Dioxide 24.5 (21.0-32.0) mmol/L BUN 8 (7.0-18.0) mg/dL Creatinine 1.0 (0.6-1.0) mg/dL Est Cr Clr Drug Dosing 67.21 mL/min Estimated GFR (MDRD) > 60.0 ml/min Glucose 103 (74-106) mg/dL Calcium 8.6 (8.5-10.1) mg/dL Total Bilirubin 0.3 (0.2-1.0) mg/dL AST 23 (15-37) IU/L ALT 42 (14-63) IU/L Alkaline Phosphatase 133 H (46-116) U/L Creatine Kinase 118 (26-308) U/L Troponin I < 0.050 (0.000-0.056) ng/mL Total Protein 7.9 (6.4-8.2) g/dL Albumin 3.6 (3.4-5.0) g/dL Globulin 4.3 H (2.6-4.0) g/dL Albumin/Globulin Ratio 0.8 L (0.9-1.6) HCG, Qual (NEG) Influenza Type A RNA (NEGATIVE) Influenza Type B RNA (NEGATIVE) SARS-CoV-2 RNA (BHAVNA) (NEGATIVE) 10/07/20 10/07/20 10/07/20 Range/Units 18:09 18:09 18:15 WBC (4.0-11.0) K/uL RBC (4.30-5.90) M/uL Hgb (12.0-16.0) g/dL Hct (36.0-46.0) % MCV (80.0-98.0) fL MCH (27.0-32.0) pg MCHC (31.0-37.0) g/dL RDW Std Deviation (28.0-62.0) fl RDW Coeff of Monster (11.0-15.0) % Plt Count (150-400) K/uL MPV (7.40-12.00) fL Neut % (Auto) (48.0-80.0) % Lymph % (Auto) (16.0-40.0) % Gentry % (Auto) (0.0-15.0) % Eos % (Auto) (0.0-7.0) % Baso % (Auto) (0.0-1.5) % Neut # (Auto) (1.4-5.7) K/uL Lymph # (Auto) (0.6-2.4) K/uL Gentry # (Auto) (0.0-0.8) K/uL Eos # (Auto) (0.0-0.7) K/uL Baso # (Auto) (0.0-0.1) K/uL Nucleated RBC % /100WBC Nucleated RBCs # K/uL D-Dimer, Quantitative 4.08 H (0.0-0.50) mg/L FEU Lactate (0.20-2.00) mmol/L Sodium (136-145) mmol/L Potassium (3.5-5.1) mmol/L Chloride (98-107) mmol/L Carbon Dioxide (21.0-32.0) mmol/L BUN (7.0-18.0) mg/dL Creatinine (0.6-1.0) mg/dL Est Cr Clr Drug Dosing mL/min Estimated GFR (MDRD) ml/min Glucose (74-106) mg/dL Calcium (8.5-10.1) mg/dL Total Bilirubin (0.2-1.0) mg/dL AST (15-37) IU/L ALT (14-63) IU/L Alkaline Phosphatase (46-116) U/L Creatine Kinase (26-308) U/L Troponin I (0.000-0.056) ng/mL Total Protein (6.4-8.2) g/dL Albumin (3.4-5.0) g/dL Globulin (2.6-4.0) g/dL Albumin/Globulin Ratio (0.9-1.6) HCG, Qual NEGATIVE (NEG) Influenza Type A RNA NEGATIVE (NEGATIVE) Influenza Type B RNA NEGATIVE (NEGATIVE) SARS-CoV-2 RNA (BHAVNA) NEGATIVE (NEGATIVE) Meds: Medications Generic Name Dose Route Start Last Admin Trade Name Freq PRN Reason Stop Dose Admin Azithromycin 500 mg 10/07/20 21:49 Azithromycin 250 Mg Tab PO 10/07/20 21:50 STAT STA Discontinued Medications Generic Name Dose Route Start Last Admin Trade Name Fretanner PRN Reason Stop Dose Admin Albuterol Confirm 10/07/20 20:54 10/07/20 21:02 Albuterol 8 Gm Inhaler Administered 10/07/20 20:55 2 inh Dose Administration 8 gm INH .STK-MED ONE Albuterol/Ipratropium 3 ml 10/07/20 17:39 10/07/20 17:52 Albuterol/Ipratropium 3.0-0.5 Mg/3 Ml Neb Soln NEB 10/07/20 17:40 3 ml ONETIME ONE Administration Sodium Chloride 1,000 mls @ 1,000 mls/hr 10/07/20 18:13 10/07/20 18:31 Normal Saline IV 10/07/20 19:12 1,000 mls/hr .Bolus ONE Administration Iopamidol 75 ml 10/07/20 20:45 10/07/20 20:46 Iopamidol 755 Mg/Ml 500 Ml Multipack Bottle IVPUSH 10/07/20 20:46 75 ml ONETIME STA Administration Prednisone 60 mg 10/07/20 20:22 10/07/20 21:02 Prednisone 1 Mg Tab PO 10/07/20 20:23 60 mg ONETIME ONE Administration Prednisone Confirm 10/07/20 20:49 10/07/20 20:53 Prednisone 20 Mg Tab Administered 10/07/20 20:50 Not Given Dose 60 mg .ROUTE .STK-MED ONE Departure - Departure Time of Disposition: 21:50 Condition: Good Sepsis Event Note (ED) - Focused Exam Vital Signs: Vital Signs Temp Pulse Resp BP Pulse Ox 10/07/20 20:53 91 18 138/47 L 95 10/07/20 18:28 100 20 118/79 94 L 10/07/20 17:43 106 H 93 L 10/07/20 17:30 36.6 C 107 H 22 H 145/98 H 90 L - My Orders Last 24 Hours: My Active Orders 10/07/20 21:49 Azithromycin [Zithromax] 500 mg PO STAT STA - Assessment/Plan Last 24 Hours: My Active Orders 10/07/20 21:49 Azithromycin [Zithromax] 500 mg PO STAT STA
[2020-10-07] MEDS ORDERED: Sodium Chloride 0.9% 1,000 ML IV ONE (18:13)
--- NOTE | 2020-10-07 18:14 | CR ---
INDICATION: Dyspnea. TECHNIQUE: Chest 1 view. COMPARISON: None. FINDINGS: No focal consolidation, pleural effusion, or pneumothorax. Normal heart size and pulmonary vascularity. The bones are unremarkable. IMPRESSION: No acute cardiopulmonary findings. Dictated by Promise Cabrera MD @ Oct 07 2020 6:12PM Signed by Dr. Promise Cabrera @ Oct 07 2020 6:13PM
[2020-10-07 18:53] LABS: BLOOD UREA NITROGEN,BUN 8 mg/dL (7.0-18.0); CARBON DIOXIDE,CO2 24.5 mmol/L (21.0-32.0); CHLORIDE,CL 104 mmol/L (98-107); GLUCOSE RANDOM 103 mg/dL (74-106); POTASSIUM,K 3.8 mmol/L (3.5-5.1); SODIUM,NA 138 mmol/L (136-145)
[2020-10-07 19:14] LABS: CORONAVIRUS COVID-19 NAA NEGATIVE (NEGATIVE); INFLUENZA A NAA NEGATIVE (NEGATIVE); INFLUENZA B NAA NEGATIVE (NEGATIVE)
[2020-10-07] MEDS ORDERED: predniSONE 1 MG Tab PO ONE (20:22)
[2020-10-07] MEDS ORDERED: Iopamidol 755 MG/ML 500 ML Multipack Bottle IVPUSH STA (20:45)
[2020-10-07] MEDS ORDERED: predniSONE 20 MG Tab ONE (20:49)
[2020-10-07] MEDS ORDERED: Albuterol 8 GM Inhaler INH ONE (20:54)
--- NOTE | 2020-10-07 21:35 | CT ---
INDICATION: Tachycardia and hypoxia, rule out PE. COMPARISON: Chest radiograph 10/07/2020. CT chest 08/15/2014. TECHNIQUE: CT of the chest with 75 cc of Isovue 370 IV contrast. Coronal and sagittal reconstructions. 3D post processing was performed. FINDINGS: Normal heart size. Normal caliber thoracic aorta and central pulmonary arteries. Focal pericardial calcification at the left ventricular apex similar to prior exam. Negative for acute pulmonary embolism. No pericardial effusion. No thoracic lymphadenopathy. There is a small ground-glass opacity in the anterior right lower lobe which may be infectious or inflammatory. No dense consolidation. No pleural effusion or pneumothorax. No central endobronchial lesion. Mild diffuse bronchial wall thickening. Stable 3 mm noncalcified pulmonary nodule in the anterior right middle lobe (series 602, image 101). This is unchanged since 2015 and should be benign. Interval calcification of the previously seen medial right lower lobe pulmonary nodule, compatible with a benign granuloma (image 115). No new pulmonary nodules identified. The thyroid gland is normal in appearance. Small hiatal hernia. The spleen is mildly enlarged measuring 13.8 cm in AP dimension. Splenule. Cholecystectomy. The bones are unremarkable. IMPRESSION: 1. Negative for acute pulmonary embolism. 2. Small ground-glass opacity in the right lower lobe may be infectious or inflammatory. There is also mild diffuse bronchial wall thickening. 3. Interval calcification of the previously seen right lower lobe pulmonary nodule. This is compatible with a benign granuloma. 4. Mild splenomegaly. Please note that all CT scans at this facility use dose modulation, iterative reconstruction, and/or weight-based dosing when appropriate to reduce radiation dose to as low as reasonably achievable. Dictated by Promise Cabrera MD @ Oct 07 2020 9:23PM Signed by Dr. Promise Cabrera @ Oct 07 2020 9:35PM
[2020-10-07] MEDS ORDERED: Azithromycin 250 MG Tab PO STA (21:49)
[2020-10-07 21:51] VITALS: BP 131/79; PULSE 89
== END 2020-10-07 22:09 | disposition home or self-care (01) ==
LOC: MW.ED 17:19
DX: J18.9 Pneumonia, unspecified organism (principal); Z20.822 Contact with and (suspected) exposure to COVID-19
CPT/HCPCS: 0240U; 36415; 71045; 71275; 80053; 82550; 83605; 84484; 84703; 85025; 85379; 93005; 94640; 99285; A9270; J7030; Q9967; J7620-GY

== ENCOUNTER 2021-03-23 22:27 | Emergency (ER) | payer OTHER ==
--- NOTE | 2021-03-24 00:43 | EDM.PDOC ---
ED HPI GENERAL MEDICAL PROBLEM - General Chief Complaint: Respiratory Problem Stated Complaint: DIFFICULTY BREATHING, BODY ACHES, FEVER Time Seen by Provider: 03/24/21 00:40 - History of Present Illness INITIAL COMMENTS - FREE TEXT/NARRATIVE: HISTORY AND PHYSICAL: History of present illness: This is a 46-year-old female with no history of hypertension, diabetes, liver, lung, kidney problems who has a BMI of 29, who presents to the ER today secondary to URI symptoms with cough, congestion, rhinorrhea, shortness of breath, muscle aches, myalgias, decreased p.o. intake. Mother reports that she has not had her Covid vaccination. 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 Mother denies any recent fevers, shakes, chills. She denies any vomiting or diarrhea. She denies any loss of taste or smell. Patient denies any dysuria, frequency, urgency. Denies any history of hypertension, diabetes, liver, lung, kidney problems. Denies any tobacco alcohol or drugs. No known drug allergies. Review of systems: As per history of present illness and below otherwise all systems reviewed and negative. Past medical history: As per history of present illness and as reviewed below otherwise noncontributory. Surgical history: As per history of present illness and as reviewed below otherwise noncontributory. Social history: No reported history of drug abuse. Negative for tobacco, alcohol Family history: As per history of present illness and as reviewed below otherwise noncontributory. Physical exam: This patient was seen and evaluated during the 2019 SARS-CoV-2 novel coronavirus pandemic period. Community viral transmission is ongoing at time of this encounter and the emergency department is operating under pandemic response procedures. Constitutional: Patient is oriented to person, place, and time. Appears well- developed and well-nourished. No distress. HEENT: Moist mucous membranes Head: Normocephalic and atraumatic Eyes: Right eye exhibits no discharge. Left eye exhibits no discharge. No scleral icterus Neck: Normal range of motion. No tracheal deviation present. Cardiovascular: Normal rate and regular rhythm. Pulmonary: Effort normal, no respiratory distress. Abdominal: No distention Musculoskeletal: Normal range of motion Neurologic: Alert and oriented to person, place and time. Skin: [place], warm and dry. Psychiatric: Normal mood and affect. Behavior is normal. Judgment and thought content normal. Nursing note and vital signs have been reviewed Diagnostics: Pulse ox 96% on room air: Normal Therapeutics: [] Assessment and plan: 46-year-old female who presents to the ER today with concern of possible Covid infection. Patient's presentation is consistent with a viral upper respiratory infection. We will check a Covid test on the patient. Patient's pulse ox currently is 96% on room air and does not appear to be in any acute respiratory distress. Covid test negative. Definitive disposition and diagnosis as appropriate pending reevaluation and review of above. Bilateral Chest Pain Score (Numeric/FACES): 2 - Related Data Allergies Allergy/AdvReac Type Severity Reaction Status Date / Time No Known Allergies Allergy Verified 10/07/20 17:29 Home Meds: Home Meds Multivitamin [Multivitamins] 1 each PO DAILY 08/24/18 [History] Azithromycin [Zithromax] 250 mg PO DAILY #4 tab 10/07/20 [Rx] Albuterol Sulfate [Albuterol Sulfate HFA] 8.5 gm INH Q6H PRN #1 inhaler 03/24/21 [Rx] Past Medical History - Past Health History Medical/Surgical History: Denies Medical/Surgical History - Infectious Disease History Infectious Disease History: Reports: Chicken Pox - Past Surgical History GI Surgical History: Reports: Cholecystectomy Social & Family History - Family History Family Medical History: No Pertinent Family History - Caffeine Use Caffeine Use: Reports: Energy Drinks ED ROS GENERAL - Review of Systems Review Of Systems: See Below ED EXAM, GENERAL - Physical Exam Exam: See Below Course - Vital Signs Last Recorded V/S: Last Vital Signs Temp 97.6 F 03/24/21 00:28 Pulse 80 03/24/21 00:28 Resp 24 H 03/24/21 00:28 BP 109/65 03/24/21 00:28 Pulse Ox 96 03/24/21 00:28 - Orders/Labs/Meds Labs: Laboratory Tests 03/24/21 Range/Units 00:39 SARS-CoV-2 RNA (BHAVNA) NEGATIVE (NEGATIVE) Departure - Departure Time of Disposition: 01:50 Disposition: Home, Self-Care 01 Condition: Good Clinical Impression: Viral upper respiratory infection - Discharge Information Instructions: Viral Respiratory Infection, [id number] Referrals: PCP,None [Primary Care Provider] - Forms: ED Department Discharge Additional Instructions: You were seen and evaluated in ER today secondary to sinus symptoms that were concerning for coronavirus. Your coronavirus test is negative today in the emergency department. You will be given a prescription for an inhaler to use as needed if you start wheezing. Please get plenty of rest, drink plenty liquids, and use acetaminophen as needed for fevers. The following information is given to patients seen in the emergency department who are being discharged to home. This information is to outline your options for follow-up care. We provide all patients seen in our emergency department with a follow-up referral. The need for follow-up, as well as the timing and circumstances, are variable depending upon the specifics of your emergency department visit. If you don't have a primary care physician on staff, we will provide you with a referral. We always advise you to contact your personal physician following an emergency department visit to inform them of the circumstance of the visit and for follow-up with them and/or the need for any referrals to a consulting specialist. The emergency department will also refer you to a specialist when appropriate. This referral assures that you have the opportunity for follow-up care with a specialist. All of these measure are taken in an effort to provide you with optimal care, which includes your follow-up. Under all circumstances we always encourage you to contact your private physician who remains a resource for coordinating your care. When calling for follow-up care, please make the office aware that this follow-up is from your recent emergency room visit. If for any reason you are refused follow-up, please contact the [facility] Emergency Department at and asked to speak to the emergency department charge nurse. [facility] [address] [place] [address] [id number] [address] [address] Sepsis Event Note (ED) - Focused Exam Vital Signs: Vital Signs Temp Pulse Resp BP Pulse Ox 03/24/21 00:28 97.6 F 80 24 H 109/65 96
[2021-03-24 02:25] VITALS: BP 104/63; PULSE 77
== END 2021-03-24 02:25 | disposition home or self-care (01) ==
LOC: MW.ED 22:27
DX: J06.9 Acute upper respiratory infection, unspecified (principal); Z20.822 Contact with and (suspected) exposure to COVID-19
CPT/HCPCS: 99283; U0002

== ENCOUNTER 2022-02-13 17:07 | Emergency (ER) | payer OTHER ==
[2022-02-13] MEDS ORDERED: EPINEPHrine 1 MG/ML SDV IM ONE (17:16)
[2022-02-13] MEDS ORDERED: diphenhydrAMINE 50 MG/ML SDV IVPUSH ONE (17:16)
[2022-02-13] MEDS ORDERED: methylPREDNISolone Sodium Succinate 125 MG/2 ML SDV IVPUSH ONE (17:16)
[2022-02-14 03:34] VITALS: BP 126/87; PULSE 74
== END 2022-02-13 20:15 | disposition home or self-care (01) ==
LOC: MW.ED 17:07
DX: R22.0 Localized swelling, mass and lump, head (principal); T37.5X5A Adverse effect of antiviral drugs, initial encounter; Z86.16 Personal history of COVID-19
CPT/HCPCS: 96372; 96374; 96375; 99283; J0171; J1200; J2930

== ENCOUNTER 2024-02-23 23:38 | Emergency (ER) | payer SELFPAY ==
[2024-02-24 00:33] VITALS: BP 124/79; PULSE 79
[2024-02-24] MEDS: Alum Hydro/Mag Hydro/Simeth XS 15 ML, Lidocaine 2% 5 ML PO ONE (01:14)
[2024-02-24] MEDS: Acetaminophen 500 MG Tab PO ONE (01:14)
[2024-02-24] MEDS: Ondansetron 4 MG Tab.DIS PO ONE (01:14)
[2024-02-24] MEDS: Famotidine 20 MG Tab PO ONE (01:14)
== END 2024-02-24 02:12 | disposition home or self-care (01) ==
LOC: MW.ED 23:38
DX: K21.9 Gastro-esophageal reflux disease without esophagitis (principal)
CPT/HCPCS: 99283; A9270